=== PATIENT | female | born 1960 | race American Indian/Alaskan Native ===

== ENCOUNTER 2016-12-10 20:05 | Emergency (ER) | payer SELFPAY ==
[2016-12-10 20:11] VITALS: BP 131/75
[2016-12-10 20:55] LABS: CHLORIDE,CL 109 mmol/L (101-111); SODIUM,NA 140 mmol/L (135-145)
[2016-12-10] MEDS ORDERED: Potassium Chloride 10 MEQ Tab.ER PO ONE (21:51)
--- NOTE | 2016-12-11 05:14 | EDM.PDOC ---
ED HPI GENERAL MEDICAL PROBLEM - General Chief Complaint: Chest Pain Stated Complaint: AMB Time Seen by Provider: 12/10/16 20:10 Source of Information: Reports: Patient, EMS History Limitations: Reports: Altered Mental Status (visual hallucinations, ), Uncooperative - History of Present Illness INITIAL COMMENTS - FREE TEXT/NARRATIVE: ED via [facility] with c/o 2 weeks of chest pain and left weakness today. Chest pain noted to be better by patient if she applied pressure to area. No reported fever. On exam patient unable to note why she is here. Onset: Unknown/Unsure Duration: Constant Quality: Reports: Ache Severity: Mild Improves with: Reports: Other (applying pressure) Associated Symptoms: Denies: Cough, Diaphoresis, Fever/Chills, Loss of Appetite , Nausea/Vomiting Left Chest Pain Score (Numeric/FACES): 5 - Related Data Allergies Allergy/AdvReac Type Severity Reaction Status Date / Time acetaminophen [From Tylenol] AdvReac Abdominal Verified 12/10/16 20:13 Cramps Home Meds: Home Meds Ertapenem [INVanz] 1 gm IV DAILY 03/02/15 [History] Furosemide [Lasix] 40 mg PO DAILY 03/02/15 [History] Nystatin [Nyamyc] 15 gm TP BID 03/02/15 [History] Past Medical History Other HEENT History: wears glasses while awake Cardiovascular History: Reports: None Respiratory History: Reports: Other (See Below) Other Respiratory History: SOB c exertion Gastrointestinal History: Reports: Cirrhosis Other Gastrointestinal History: Heartburn Genitourinary History: Reports: None Musculoskeletal History: Reports: Back Pain, Chronic, Other (See Below) Other Musculoskeletal History: cramps in hands and calves. Neurological History: Reports: Migraines Psychiatric History: Reports: Addiction Other Psychiatric History: alcohol Endocrine/Metabolic History: Reports: None Hematologic History: Reports: Other (See Below) Other Hematologic History: chronic thrombocytopenia Immunologic History: Reports: None Oncologic (Cancer) History: Reports: None Dermatologic History: Reports: Cellulitis - Past Surgical History GI Surgical History: Reports: Cholecystectomy, EGD Female Surgical History: Reports: Other (See Below) Other Female Surgeries/Procedures: removal of renal calculus Social & Family History - Tobacco Use Smoking Status *Q: Current Every Day Smoker Years of Tobacco use: 37 Packs/Tins Daily: 0.5 Used Tobacco, but Quit: No Second Hand Smoke Exposure: Yes - Recreational Drug Use Recreational Drug Use: No ED ROS GENERAL - Review of Systems Review Of Systems: ROS reveals no pertinent complaints other than HPI. (poor historian) ED EXAM, GENERAL - Physical Exam Exam: See Below Exam Limited By: No Limitations General Appearance: Alert, No Apparent Distress Eye Exam: Bilateral Eye: EOMI, PERRL Ears: Normal External Exam, Normal TMs Nose: Normal Inspection Throat/Mouth: Normal Inspection Head: Atraumatic, Normocephalic Neck: Normal Inspection, Full Range of Motion Respiratory/Chest: No Respiratory Distress, Lungs Clear Course - Vital Signs Last Recorded V/S: Last Vital Signs Temp 99.2 F 12/10/16 20:06 Pulse 105 H 12/10/16 20:06 Resp 18 12/10/16 20:06 BP 131/75 12/10/16 20:06 Pulse Ox 97 12/10/16 20:06 - Orders/Labs/Meds Labs: Laboratory Tests 12/10/16 12/10/16 12/10/16 Range/Units 20:25 20:25 20:25 WBC 3.7 L (5.0-10.0) 10^3/uL RBC 4.43 (4.2-5.4) 10^6/uL Hgb 10.5 L (12.0-16.0) g/dL Hct 34.5 L (37.0-47.0) % MCV 77.9 L (80-100) fL MCH 23.7 L (27.0-34.0) pg MCHC 30.4 L (33.0-35.0) g/dL Plt Count 67 L (150-450) 10^3/uL Neut % (Auto) 71.0 (42.2-75.2) % Lymph % (Auto) 19.9 L (20.5-50.1) % [place] % (Auto) 4.0 (2-8) % Eos % (Auto) 4.6 H (1.0-3.0) % Baso % (Auto) 0.5 (0.0-1.0) % Sodium 140 (135-145) mmol/L Potassium 3.1 L (3.6-5.0) mmol/L Chloride 109 (101-111) mmol/L Carbon Dioxide 24.0 (21.0-31.0) mmol/L Anion Gap 10.1 BUN 10 (7-18) mg/dL Creatinine 0.5 L (0.6-1.3) mg/dL Est Cr Clr Drug Dosing 95.93 mL/min Estimated GFR (MDRD) > 60 BUN/Creatinine Ratio 20.00 Glucose 108 H (74-105) mg/dL Lactic Acid (0.5-2.2) mmol/L Calcium 7.8 L (8.4-10.2) mg/dl Total Bilirubin 1.5 H (0.2-1.0) mg/dL AST 48 H (10-42) IU/L ALT 26 (10-60) IU/L Alkaline Phosphatase 104 (42-121) IU/L Ammonia 59 H (11-35) umol/L Total Protein 6.8 (6.7-8.2) g/dl Albumin 3.5 (3.2-5.5) g/dl Globulin 3.3 Albumin/Globulin Ratio 1.06 Amylase 45 (28-100) U/L Lipase 37 (22-51) U/L Urine Color (YELLOW) Urine Appearance (CLEAR) Urine pH (5.0-9.0) Ur Specific [place] (1.005-1.030) Urine Protein (NEGATIVE) Urine Glucose (UA) (NEGATIVE) Urine Ketones (NEGATIVE) Urine Occult Blood (NEGATIVE) Urine Nitrite (NEGATIVE) Urine Bilirubin (NEGATIVE) Urine Urobilinogen (0.2-1.0) mg/dL Ur Leukocyte Esterase (NEGATIVE) Urine RBC /HPF Urine WBC (0-5/HPF) /HPF Ur Epithelial Cells /HPF Urine Bacteria (0-FEW/HPF) /HPF Urine Mucus /LPF Urine Opiates Screen (NEGATIVE) Ur Oxycodone Screen (NEGATIVE) Urine Methadone Screen (NEGATIVE) Ur Barbiturates Screen (NEGATIVE) U Tricyclic Antidepress (NEGATIVE) Ur Phencyclidine Scrn (NEGATIVE) Ur Amphetamine Screen (NEGATIVE) U Methamphetamines Scrn (NEGATIVE) Urine MDMA Screen (NEGATIVE) U Benzodiazepines Scrn (NEGATIVE) Urine Cocaine Screen (NEGATIVE) U Marijuana (THC) Screen (NEGATIVE) Ethyl Alcohol mg/dL 12/10/16 12/10/16 12/10/16 Range/Units 20:25 20:25 20:53 WBC (5.0-10.0) 10^3/uL RBC (4.2-5.4) 10^6/uL Hgb (12.0-16.0) g/dL Hct (37.0-47.0) % MCV (80-100) fL MCH (27.0-34.0) pg MCHC (33.0-35.0) g/dL Plt Count (150-450) 10^3/uL Neut % (Auto) (42.2-75.2) % Lymph % (Auto) (20.5-50.1) % [place] % (Auto) (2-8) % Eos % (Auto) (1.0-3.0) % Baso % (Auto) (0.0-1.0) % Sodium (135-145) mmol/L Potassium (3.6-5.0) mmol/L Chloride (101-111) mmol/L Carbon Dioxide (21.0-31.0) mmol/L Anion Gap BUN (7-18) mg/dL Creatinine (0.6-1.3) mg/dL Est Cr Clr Drug Dosing mL/min Estimated GFR (MDRD) BUN/Creatinine Ratio Glucose (74-105) mg/dL Lactic Acid 2.1 (0.5-2.2) mmol/L Calcium (8.4-10.2) mg/dl Total Bilirubin (0.2-1.0) mg/dL AST (10-42) IU/L ALT (10-60) IU/L Alkaline Phosphatase (42-121) IU/L Ammonia (11-35) umol/L Total Protein (6.7-8.2) g/dl Albumin (3.2-5.5) g/dl Globulin Albumin/Globulin Ratio Amylase (28-100) U/L Lipase (22-51) U/L Urine Color (YELLOW) Urine Appearance (CLEAR) Urine pH (5.0-9.0) Ur Specific [place] (1.005-1.030) Urine Protein (NEGATIVE) Urine Glucose (UA) (NEGATIVE) Urine Ketones (NEGATIVE) Urine Occult Blood (NEGATIVE) Urine Nitrite (NEGATIVE) Urine Bilirubin (NEGATIVE) Urine Urobilinogen (0.2-1.0) mg/dL Ur Leukocyte Esterase (NEGATIVE) Urine RBC /HPF Urine WBC (0-5/HPF) /HPF Ur Epithelial Cells /HPF Urine Bacteria (0-FEW/HPF) /HPF Urine Mucus /LPF Urine Opiates Screen Negative (NEGATIVE) Ur Oxycodone Screen Negative (NEGATIVE) Urine Methadone Screen Negative (NEGATIVE) Ur Barbiturates Screen Negative (NEGATIVE) U Tricyclic Antidepress Negative (NEGATIVE) Ur Phencyclidine Scrn Negative (NEGATIVE) Ur Amphetamine Screen Negative (NEGATIVE) U Methamphetamines Scrn Negative (NEGATIVE) Urine MDMA Screen Negative (NEGATIVE) U Benzodiazepines Scrn Negative (NEGATIVE) Urine Cocaine Screen Negative (NEGATIVE) U Marijuana (THC) Screen Negative (NEGATIVE) Ethyl Alcohol 308 mg/dL 12/10/16 Range/Units 20:53 WBC (5.0-10.0) 10^3/uL RBC (4.2-5.4) 10^6/uL Hgb (12.0-16.0) g/dL Hct (37.0-47.0) % MCV (80-100) fL MCH (27.0-34.0) pg MCHC (33.0-35.0) g/dL Plt Count (150-450) 10^3/uL Neut % (Auto) (42.2-75.2) % Lymph % (Auto) (20.5-50.1) % [place] % (Auto) (2-8) % Eos % (Auto) (1.0-3.0) % Baso % (Auto) (0.0-1.0) % Sodium (135-145) mmol/L Potassium (3.6-5.0) mmol/L Chloride (101-111) mmol/L Carbon Dioxide (21.0-31.0) mmol/L Anion Gap BUN (7-18) mg/dL Creatinine (0.6-1.3) mg/dL Est Cr Clr Drug Dosing mL/min Estimated GFR (MDRD) BUN/Creatinine Ratio Glucose (74-105) mg/dL Lactic Acid (0.5-2.2) mmol/L Calcium (8.4-10.2) mg/dl Total Bilirubin (0.2-1.0) mg/dL AST (10-42) IU/L ALT (10-60) IU/L Alkaline Phosphatase (42-121) IU/L Ammonia (11-35) umol/L Total Protein (6.7-8.2) g/dl Albumin (3.2-5.5) g/dl Globulin Albumin/Globulin Ratio Amylase (28-100) U/L Lipase (22-51) U/L Urine Color Yellow (YELLOW) Urine Appearance Clear (CLEAR) Urine pH 6.5 (5.0-9.0) Ur Specific [place] 1.015 (1.005-1.030) Urine Protein 100 H (NEGATIVE) Urine Glucose (UA) Negative (NEGATIVE) Urine Ketones Trace H (NEGATIVE) Urine Occult Blood Moderate H (NEGATIVE) Urine Nitrite Negative (NEGATIVE) Urine Bilirubin Negative (NEGATIVE) Urine Urobilinogen 4.0 H (0.2-1.0) mg/dL Ur Leukocyte Esterase Trace H (NEGATIVE) Urine RBC 5-10 H /HPF Urine WBC 0-5 (0-5/HPF) /HPF Ur Epithelial Cells Few /HPF Urine Bacteria Few (0-FEW/HPF) /HPF Urine Mucus Many H /LPF Urine Opiates Screen (NEGATIVE) Ur Oxycodone Screen (NEGATIVE) Urine Methadone Screen (NEGATIVE) Ur Barbiturates Screen (NEGATIVE) U Tricyclic Antidepress (NEGATIVE) Ur Phencyclidine Scrn (NEGATIVE) Ur Amphetamine Screen (NEGATIVE) U Methamphetamines Scrn (NEGATIVE) Urine MDMA Screen (NEGATIVE) U Benzodiazepines Scrn (NEGATIVE) Urine Cocaine Screen (NEGATIVE) U Marijuana (THC) Screen (NEGATIVE) Ethyl Alcohol mg/dL Meds: Medications Discontinued Medications Generic Name Dose Route Start Last Admin Trade Name Pia PRN Reason Stop Dose Admin Potassium Chloride 20 meq 12/10/16 21:51 Klor-Con 10 PO 12/10/16 21:52 ONETIME ONE - Re-Assessments/Exams Free Text/Narrative Re-Assessment/Exam: Patient out of bed numerous times attempting to leave, and redirected. Generally cooperative. . Gait is steady, non antalgic. When up and moving and talking strong odor of ETOH that was not initially apparent. Patient eloped. Departure - Departure Time of Disposition: 22:05 Disposition: Eloped 07 Condition: undetermined Clinical Impression: Intoxication - Discharge Information Referrals: PCP,Unobtain [Primary Care Provider] - Forms: ED Department Discharge
--- NOTE | 2016-12-14 12:06 | EKG ---
12/10/2016 - DONAVON MALONE I reviewed the EKG and agree with the machine's reading. [facility] /[id number]
== END 2016-12-10 22:05 | disposition left against medical advice (07) ==
LOC: DL.ED 20:05
DX: F10.129 Alcohol abuse with intoxication, unspecified (principal); R07.9 Chest pain, unspecified; R53.1 Weakness; G43.909 Migraine, unspecified, not intractable, without status migrainosus; F17.210 Nicotine dependence, cigarettes, uncomplicated; Y90.8 Blood alcohol level of 240 mg/100 ml or more; Z90.49 Acquired absence of other specified parts of digestive tract; Z88.6 Allergy status to analgesic agent; Z79.899 Other long term (current) drug therapy
CPT/HCPCS: 36415; 70450; 71010; 80053; 80305; 81001; 82140; 82150; 83605; 83690; 85025; 87040; 93005; 93010; 99285; G0480; 99283

== ENCOUNTER 2017-02-16 10:45 | Emergency (ER) | payer SELFPAY ==
--- NOTE | 2017-02-16 10:49 | EDM.PDOC ---
ED HPI GENERAL MEDICAL PROBLEM - General Stated Complaint: IN BY AMBULANCE Time Seen by Provider: 02/16/17 10:50 Source of Information: Reports: Patient History Limitations: Reports: No Limitations - History of Present Illness INITIAL COMMENTS - FREE TEXT/NARRATIVE: This 56 yo female patient was brought to the ED from the [facility] due to 7 episodes of vomiting blood today. The patient reported that she started vomiting at about 0630 this morning. The patient was given a liter of IV fluid and IV Zofran by the [facility] and [facility] prior to arrival in the ED. The patient has a history of ETOH use and esophageal varicies. The patient reports she has been drinking intermittently since February 02. The patient admits to drinking about 1/2 liter of [place] last night and stopped at about midnight. The patient reports her bowel movements have been very dark in color for the past 2-3 days and her stomach started not feeling well yesterday. The patient reports she is currently feeling very lightheaded. Onset: Today Onset Date: 02/16/17 Onset Time: 06:00 Duration: Hour(s):, Constant Location: Reports: Abdomen Quality: Reports: Ache, Dull Severity: Moderate Improves with: Reports: None Worsens with: Reports: None Associated Symptoms: Reports: Nausea/Vomiting Right Abdomen Pain Score (Numeric/FACES): 4 - Related Data Allergies Allergy/AdvReac Type Severity Reaction Status Date / Time pseudoephedrine Allergy Itching Verified 02/16/17 11:11 acetaminophen [From Tylenol] AdvReac Abdominal Verified 12/10/16 20:13 Cramps Home Meds: Home Meds Ertapenem [INVanz] 1 gm IV DAILY 03/02/15 [History] Furosemide [Lasix] 40 mg PO DAILY 03/02/15 [History] Nystatin [Nyamyc] 15 gm TP BID 03/02/15 [History] Past Medical History Other HEENT History: wears glasses while awake Cardiovascular History: Reports: None Respiratory History: Reports: Other (See Below) Other Respiratory History: SOB c exertion Gastrointestinal History: Reports: None Other Gastrointestinal History: Heartburn Genitourinary History: Reports: None Musculoskeletal History: Reports: Back Pain, Chronic, Other (See Below) Other Musculoskeletal History: cramps in hands and calves. Neurological History: Reports: Migraines Psychiatric History: Reports: Addiction Other Psychiatric History: alcohol Endocrine/Metabolic History: Reports: None Hematologic History: Reports: Other (See Below) Other Hematologic History: chronic thrombocytopenia Immunologic History: Reports: None Oncologic (Cancer) History: Reports: None Dermatologic History: Reports: Cellulitis - Past Surgical History GI Surgical History: Reports: Cholecystectomy Social & Family History - Tobacco Use Smoking Status *Q: Current Every Day Smoker Years of Tobacco use: 37 Packs/Tins Daily: 0.5 Used Tobacco, but Quit: No Second Hand Smoke Exposure: Yes - Recreational Drug Use Recreational Drug Use: No ED ROS GENERAL - Review of Systems Review Of Systems: ROS reveals no pertinent complaints other than HPI. ED EXAM, GI/ABD - Physical Exam Exam: See Below Exam Limited By: No Limitations General Appearance: Alert, WD/WN, Moderate Distress Eyes: Bilateral: Normal Appearance, EOMI Ears: Normal External Exam, Normal Canal, Hearing Grossly Normal, Normal TMs Nose: Normal Inspection, Normal Mucosa, No Blood Throat/Mouth: Normal Inspection, Normal Lips, Normal Teeth, Normal Gums, Normal Oropharynx, Normal Voice, No Airway Compromise Head: Atraumatic, Normocephalic Neck: Normal Inspection, Supple, Non-Tender, Full Range of Motion Respiratory/Chest: No Respiratory Distress, Lungs Clear, Normal Breath Sounds, No Accessory Muscle Use, Chest Non-Tender Cardiovascular: Normal Peripheral Pulses, Regular Rate, Rhythm, No Edema, No Gallop, No JVD, No Murmur, No Rub GI/Abdominal Exam: Normal Bowel Sounds, Tender (diffuse upper and right sided abdominal pain) (Female) Exam: Deferred Back Exam: Paraspinal Tenderness (right lower back) Extremities: Normal Inspection, Normal Range of Motion, Non-Tender, Normal Capillary Refill, No Pedal Edema Neurological: Alert, Oriented, CN II-XII Intact, Normal Cognition, Normal Gait, Normal Reflexes, No Motor/Sensory Deficits Psychiatric: Normal Affect, Normal Mood Skin Exam: Warm, Dry, Intact, Normal Color, No Rash Lymphatic: No Adenopathy Course - Vital Signs Last Recorded V/S: Last Vital Signs Temp 37.1 C 02/16/17 11:47 Pulse 106 H 02/16/17 11:47 Resp 16 02/16/17 11:47 BP 100/58 L 02/16/17 11:47 Pulse Ox 98 02/16/17 11:47 - Orders/Labs/Meds Labs: Laboratory Tests 02/16/17 02/16/17 02/16/17 Range/Units 10:47 10:47 10:47 WBC 4.4 L (5.0-10.0) 10^3/uL RBC 3.53 L (4.2-5.4) 10^6/uL Hgb 8.2 L (12.0-16.0) g/dL Hct 29.2 L (37.0-47.0) % MCV 82.7 (80-100) fL MCH 23.2 L (27.0-34.0) pg MCHC 28.1 L (33.0-35.0) g/dL Plt Count 65 L (150-450) 10^3/uL Neut % (Auto) 86.3 H (42.2-75.2) % Lymph % (Auto) 5.7 L (20.5-50.1) % [place] % (Auto) 7.3 (2-8) % Eos % (Auto) 0.5 L (1.0-3.0) % Baso % (Auto) 0.2 (0.0-1.0) % Sodium 144 (135-145) mmol/L Potassium 3.5 L (3.6-5.0) mmol/L Chloride 112 H (101-111) mmol/L Carbon Dioxide 21.0 (21.0-31.0) mmol/L Anion Gap 14.5 BUN 21 H (7-18) mg/dL Creatinine 0.5 L (0.6-1.3) mg/dL Est Cr Clr Drug Dosing 98.24 mL/min Estimated GFR (MDRD) > 60 BUN/Creatinine Ratio 42.00 Glucose 104 (74-105) mg/dL Calcium 7.6 L (8.4-10.2) mg/dl Total Bilirubin 4.5 H (0.2-1.0) mg/dL AST 66 H (10-42) IU/L ALT 40 (10-60) IU/L Alkaline Phosphatase 97 (42-121) IU/L Ammonia 148 H (11-35) umol/L Total Protein 5.8 L (6.7-8.2) g/dl Albumin 2.8 L (3.2-5.5) g/dl Globulin 3.0 Albumin/Globulin Ratio 0.93 Amylase 30 (28-100) U/L Lipase 25 (22-51) U/L HCG, Qual Negative Urine Color (YELLOW) Urine Appearance (CLEAR) Urine pH (5.0-9.0) Ur Specific [place] (1.005-1.030) Urine Protein (NEGATIVE) Urine Glucose (UA) (NEGATIVE) Urine Ketones (NEGATIVE) Urine Occult Blood (NEGATIVE) Urine Nitrite (NEGATIVE) Urine Bilirubin (NEGATIVE) Urine Urobilinogen (0.2-1.0) mg/dL Ur Leukocyte Esterase (NEGATIVE) Urine RBC /HPF Urine WBC (0-5/HPF) /HPF Ur Epithelial Cells /HPF Urine Bacteria (0-FEW/HPF) /HPF Urine Mucus /LPF Urine Opiates Screen (NEGATIVE) Ur Oxycodone Screen (NEGATIVE) Urine Methadone Screen (NEGATIVE) Ur Barbiturates Screen (NEGATIVE) U Tricyclic Antidepress (NEGATIVE) Ur Phencyclidine Scrn (NEGATIVE) Ur Amphetamine Screen (NEGATIVE) U Methamphetamines Scrn (NEGATIVE) Urine MDMA Screen (NEGATIVE) U Benzodiazepines Scrn (NEGATIVE) Urine Cocaine Screen (NEGATIVE) U Marijuana (THC) Screen (NEGATIVE) Ethyl Alcohol 8 mg/dL 02/16/17 02/16/17 Range/Units 11:32 11:32 WBC (5.0-10.0) 10^3/uL RBC (4.2-5.4) 10^6/uL Hgb (12.0-16.0) g/dL Hct (37.0-47.0) % MCV (80-100) fL MCH (27.0-34.0) pg MCHC (33.0-35.0) g/dL Plt Count (150-450) 10^3/uL Neut % (Auto) (42.2-75.2) % Lymph % (Auto) (20.5-50.1) % [place] % (Auto) (2-8) % Eos % (Auto) (1.0-3.0) % Baso % (Auto) (0.0-1.0) % Sodium (135-145) mmol/L Potassium (3.6-5.0) mmol/L Chloride (101-111) mmol/L Carbon Dioxide (21.0-31.0) mmol/L Anion Gap BUN (7-18) mg/dL Creatinine (0.6-1.3) mg/dL Est Cr Clr Drug Dosing mL/min Estimated GFR (MDRD) BUN/Creatinine Ratio Glucose (74-105) mg/dL Calcium (8.4-10.2) mg/dl Total Bilirubin (0.2-1.0) mg/dL AST (10-42) IU/L ALT (10-60) IU/L Alkaline Phosphatase (42-121) IU/L Ammonia (11-35) umol/L Total Protein (6.7-8.2) g/dl Albumin (3.2-5.5) g/dl Globulin Albumin/Globulin Ratio Amylase (28-100) U/L Lipase (22-51) U/L HCG, Qual Urine Color Yellow (YELLOW) Urine Appearance Slightly cloudy (CLEAR) Urine pH 7.5 (5.0-9.0) Ur Specific [place] 1.015 (1.005-1.030) Urine Protein Negative (NEGATIVE) Urine Glucose (UA) Negative (NEGATIVE) Urine Ketones 15 H (NEGATIVE) Urine Occult Blood Trace-intact H (NEGATIVE) Urine Nitrite Negative (NEGATIVE) Urine Bilirubin Negative (NEGATIVE) Urine Urobilinogen 1.0 (0.2-1.0) mg/dL Ur Leukocyte Esterase Negative (NEGATIVE) Urine RBC 5-10 H /HPF Urine WBC Not seen (0-5/HPF) /HPF Ur Epithelial Cells Rare /HPF Urine Bacteria Rare (0-FEW/HPF) /HPF Urine Mucus Rare /LPF Urine Opiates Screen Negative (NEGATIVE) Ur Oxycodone Screen Negative (NEGATIVE) Urine Methadone Screen Negative (NEGATIVE) Ur Barbiturates Screen Negative (NEGATIVE) U Tricyclic Antidepress Negative (NEGATIVE) Ur Phencyclidine Scrn Negative (NEGATIVE) Ur Amphetamine Screen Negative (NEGATIVE) U Methamphetamines Scrn Negative (NEGATIVE) Urine MDMA Screen Negative (NEGATIVE) U Benzodiazepines Scrn Negative (NEGATIVE) Urine Cocaine Screen Negative (NEGATIVE) U Marijuana (THC) Screen Negative (NEGATIVE) Ethyl Alcohol mg/dL Meds: Medications Discontinued Medications Generic Name Dose Route Start Last Admin Trade Name Freq PRN Reason Stop Dose Admin Pantoprazole Sodium 80 mg 02/16/17 10:57 02/16/17 11:11 Protonix Iv IVPUSH 02/16/17 10:58 80 mg .BOLUS ONE Administration Departure - Departure Time of Disposition: 12:05 Disposition: DC/Tfer to Acute Hospital 02 Condition: Poor Clinical Impression: Upper GI bleed GI bleed Qualifiers: GI bleed type/associated pathology: gastritis Gastritis type: alcoholic Qualified Code(s): K29.21 - Alcoholic gastritis with bleeding - Discharge Information Forms: Interfacility Transfer EMTALA Care Plan Goals: Discussed the history, examination, labs and treatments with Dr. Dow ( Hospitalist with [facility] in [place]). Dr. Dow accepted the patient for continued evaluation and management. The patient will be treated by [facility].
[2017-02-16] MEDS ORDERED: Pantoprazole 40 MG Vial IVPUSH ONE (10:57)
[2017-02-16 11:23] LABS: CHLORIDE,CL 112 mmol/L (101-111); SODIUM,NA 144 mmol/L (135-145)
[2017-02-16 11:49] VITALS: BP 100/58
== END 2017-02-16 13:18 ==
LOC: DL.ED 10:45
DX: K29.21 Alcoholic gastritis with bleeding (principal); G43.909 Migraine, unspecified, not intractable, without status migrainosus; F17.210 Nicotine dependence, cigarettes, uncomplicated; Z90.49 Acquired absence of other specified parts of digestive tract; Z79.899 Other long term (current) drug therapy
CPT/HCPCS: 36415; 80053; 80305; 81001; 82140; 82150; 82272; 83690; 84703; 85025; 96365; 96375; 99285; C9113; G0480; J2354; J7050

== ENCOUNTER 2017-05-27 07:10 | Emergency (ER) | payer MEDICAID ==
--- NOTE | 2017-05-27 07:30 | EDM.PDOC ---
ED HPI GENERAL MEDICAL PROBLEM - General Chief Complaint: General Stated Complaint: AMBULANCE/PNEUMONIA Time Seen by Provider: 05/27/17 07:22 Source of Information: Reports: EMS, EMS Notes Reviewed - History of Present Illness INITIAL COMMENTS - FREE TEXT/NARRATIVE: 57 yo [place] female c/o green productive cough X 1 week patient also smoker and around 2nd hand smoke. Pt. admits to fever and chills. Pt. also states she drinks alcohol every other day and fell three days ago onto left side sustaining left lateral low abdomen pain. Onset Date: 05/20/17 Onset Time: 12:00 Duration: Week(s):, Getting Worse Location: Reports: Chest Severity: Moderate Improves with: Reports: None Worsens with: Reports: None Associated Symptoms: Reports: cough w sputum (green) Left Lower Abdomen Pain Score (Numeric/FACES): 9 - Related Data Allergies Allergy/AdvReac Type Severity Reaction Status Date / Time pseudoephedrine Allergy Itching Verified 02/16/17 11:11 acetaminophen [From Tylenol] AdvReac Abdominal Verified 12/10/16 20:13 Cramps Past Medical History HEENT History: Reports: Other (See Below) Other HEENT History: wears glasses while awake Cardiovascular History: Reports: None Other Cardiovascular History: portal hypertension Respiratory History: Reports: Other (See Below) Other Respiratory History: SOB c exertion Gastrointestinal History: Reports: None Other Gastrointestinal History: Heartburn Genitourinary History: Reports: None Musculoskeletal History: Reports: Back Pain, Chronic, Other (See Below) Other Musculoskeletal History: cramps in hands and calves. Neurological History: Reports: Migraines Psychiatric History: Reports: Addiction Other Psychiatric History: alcohol Endocrine/Metabolic History: Reports: None Hematologic History: Reports: Other (See Below) Other Hematologic History: chronic thrombocytopenia Immunologic History: Reports: None Oncologic (Cancer) History: Reports: None Dermatologic History: Reports: Cellulitis - Infectious Disease History Infectious Disease History: Reports: None - Past Surgical History GI Surgical History: Reports: Cholecystectomy Social & Family History - Family History Family Medical History: Noncontributory - Tobacco Use Smoking Status *Q: Current Every Day Smoker Years of Tobacco use: 37 Packs/Tins Daily: 0.5 Used Tobacco, but Quit: No Second Hand Smoke Exposure: Yes - Caffeine Use Caffeine Use: Reports: Coffee, Tea - Alcohol Use Days Per Week of Alcohol Use: 7 Number of Drinks Per Day: 10 Total Drinks Per Week: 70 - Recreational Drug Use Recreational Drug Use: No ED ROS GENERAL - Review of Systems Review Of Systems: See Below Constitutional: Reports: No Symptoms HEENT: Reports: No Symptoms Respiratory: Reports: Cough, Sputum Cardiovascular: Reports: No Symptoms Endocrine: Reports: No Symptoms GI/Abdominal: Reports: Abdominal Pain (LLQ ) : Reports: No Symptoms Musculoskeletal: Reports: No Symptoms Skin: Reports: No Symptoms Neurological: Reports: No Symptoms Psychiatric: Reports: No Symptoms Hematologic/Lymphatic: Reports: No Symptoms Immunologic: Reports: No Symptoms ED EXAM, GENERAL - Physical Exam Exam: See Below Exam Limited By: No Limitations General Appearance: Alert, WD/WN, No Apparent Distress Eye Exam: Bilateral Eye: EOMI, PERRL Ears: Normal External Exam Nose: Normal Inspection Throat/Mouth: Normal Inspection, Normal Lips Head: Atraumatic, Normocephalic Neck: Normal Inspection, Supple Respiratory/Chest: No Respiratory Distress, No Accessory Muscle Use, Rhonchi Cardiovascular: Normal Peripheral Pulses, Regular Rate, Rhythm, No Edema Peripheral Pulses: 2+: Radial (L), Radial (R) GI/Abdominal: Normal Bowel Sounds, Soft, Tender (LLQ tenderness) Extremities: Normal Inspection, Normal Range of Motion Neurological: Alert, Oriented, CN II-XII Intact, Normal Cognition Psychiatric: Normal Affect, Normal Mood Skin Exam: Warm, Dry, Intact, Other (LLQ abdomen skin bruising) Lymphatic: No Adenopathy Course - Vital Signs Last Recorded V/S: Last Vital Signs Temp 37.6 C 05/27/17 07:35 Pulse 105 H 05/27/17 08:24 Resp 20 05/27/17 08:19 BP 105/56 L 05/27/17 08:24 Pulse Ox 92 L 05/27/17 08:19 - Orders/Labs/Meds Orders: Active Orders 24 hr Category Date Time Status RT Aerosol Therapy [RC] ASDIRECTED Care 05/27/17 07:35 Ordered Chest 2V [CR] Urgent Exams 05/27/17 07:22 Ordered CBC WITH AUTO DIFF [HEME] Stat Lab 05/27/17 07:22 Ordered CULTURE BLOOD [BC] Stat Lab 05/27/17 07:22 Ordered CULTURE BLOOD [BC] Stat Lab 05/27/17 07:30 Ordered CULTURE SPUTUM + SMEAR [RM] Stat Lab 05/27/17 07:23 Uncollected MANUAL DIFFERENTIAL QA/NC [HEME] Stat Lab 05/27/17 07:38 Results D5 1/2 NS w/ 40 mEq/L KCl 1,000 ml Med 05/27/17 08:45 Ordered IV ASDIRECTED Levofloxacin/Dextrose 5%-Water [Levaquin in D5W 750 MG/ Med 05/27/17 08:45 Ordered 150 ML] 750 mg Premix Bag 1 bag IV ONETIME Sodium Chloride 0.9% [Normal Saline] 1,000 ml Med 05/27/17 08:32 Ordered IV .BOLUS Medication Orders Sodium Chloride (Normal Saline) 1,000 mls @ 999 mls/hr IV .BOLUS ONE Stop: 05/27/17 09:32 Last Admin: 05/27/17 08:37 Dose: 999 mls/hr Potassium Chloride/Dextrose/Sod Cl (D5 1/2 Ns W/ 40 Meq/L Kcl) 1,000 mls @ 999 mls/hr IV ASDIRECTED SARINA Levofloxacin/Dextrose 750 mg/ (Premix) 150 mls @ 100 mls/hr IV ONETIME ONE Stop: 05/27/17 10:14 Labs: Laboratory Tests 05/27/17 05/27/17 05/27/17 Range/Units 07:38 07:38 07:38 WBC 3.9 L (5.0-10.0) 10^3/uL RBC 4.35 (4.2-5.4) 10^6/uL Hgb 10.7 L D (12.0-16.0) g/dL Hct 35.9 L (37.0-47.0) % MCV 82.5 (80-100) fL MCH 24.6 L (27.0-34.0) pg MCHC 29.8 L (33.0-35.0) g/dL Plt Count 30 L* (150-450) 10^3/uL Neut % (Auto) 94.1 H (42.2-75.2) % Lymph % (Auto) 2.3 L (20.5-50.1) % [place] % (Auto) 3.6 (2-8) % Eos % (Auto) 0.0 L (1.0-3.0) % Baso % (Auto) 0.0 (0.0-1.0) % Add Manual Diff Yes Sodium 136 (135-145) mmol/L Potassium 3.0 L (3.6-5.0) mmol/L Chloride 100 L D (101-111) mmol/L Carbon Dioxide 17.0 L (21.0-31.0) mmol/L Anion Gap 22.0 BUN 12 (7-18) mg/dL Creatinine 0.8 (0.6-1.3) mg/dL Est Cr Clr Drug Dosing 59.25 mL/min Estimated GFR (MDRD) > 60 BUN/Creatinine Ratio 15.00 Glucose 62 L (74-105) mg/dL Lactic Acid 7.3 H (0.5-2.2) mmol/L Calcium 8.4 (8.4-10.2) mg/dl Total Bilirubin 9.8 H (0.2-1.0) mg/dL AST 183 H (10-42) IU/L ALT 60 (10-60) IU/L Alkaline Phosphatase 136 H (42-121) IU/L Total Protein 7.3 (6.7-8.2) g/dl Albumin 3.2 (3.2-5.5) g/dl Globulin 4.1 Albumin/Globulin Ratio 0.78 Ethyl Alcohol mg/dL 05/27/ Range/Units 07:38 WBC (5.0-10.0) 10^3/uL RBC (4.2-5.4) 10^6/uL Hgb (12.0-16.0) g/dL Hct (37.0-47.0) % MCV (80-100) fL MCH (27.0-34.0) pg MCHC (33.0-35.0) g/dL Plt Count (150-450) 10^3/uL Neut % (Auto) (42.2-75.2) % Lymph % (Auto) (20.5-50.1) % [place] % (Auto) (2-8) % Eos % (Auto) (1.0-3.0) % Baso % (Auto) (0.0-1.0) % Add Manual Diff Sodium (135-145) mmol/L Potassium (3.6-5.0) mmol/L Chloride (101-111) mmol/L Carbon Dioxide (21.0-31.0) mmol/L Anion Gap BUN (7-18) mg/dL Creatinine (0.6-1.3) mg/dL Est Cr Clr Drug Dosing mL/min Estimated GFR (MDRD) BUN/Creatinine Ratio Glucose (74-105) mg/dL Lactic Acid (0.5-2.2) mmol/L Calcium (8.4-10.2) mg/dl Total Bilirubin (0.2-1.0) mg/dL AST (10-42) IU/L ALT (10-60) IU/L Alkaline Phosphatase (42-121) IU/L Total Protein (6.7-8.2) g/dl Albumin (3.2-5.5) g/dl Globulin Albumin/Globulin Ratio Ethyl Alcohol 5 mg/dL Meds: Medications Generic Name Dose Route Start Last Admin Trade Name Freq PRN Reason Stop Dose Admin Sodium Chloride 1,000 mls @ 999 mls/hr 05/27/17 08:32 05/27/17 08:37 Normal Saline IV 05/27/17 09:32 999 mls/hr .BOLUS ONE Administration Potassium Chloride/Dextrose/Sod Cl 1,000 mls @ 999 mls/hr 05/27/17 08:45 D5 1/2 Ns W/ 40 Meq/L Kcl IV ASDIRECTED SARINA Levofloxacin/Dextrose 750 mg/ 150 mls @ 100 mls/hr 05/27/17 08:45 Premix IV 05/27/17 10:14 ONETIME ONE Discontinued Medications Generic Name Dose Route Start Last Admin Trade Name Freq PRN Reason Stop Dose Admin Albuterol/Ipratropium 3 ml 05/27/17 07:35 05/27/17 07:47 Duoneb 3.0-0.5 Mg/3 Ml NEB 05/27/17 07:36 3 ml ONETIME ONE Administration Departure - Departure Time of Disposition: 08:47 Disposition: DC/Tfer to [facility] Condition: Fair Clinical Impression: Hyperbilirubinemia, Thrombocytopenia, Hypokalemia Pneumonia Qualifiers: Pneumonia type: due to unspecified organism Laterality: bilateral Lung location : unspecified part of lung Qualified Code(s): J18.9 - Pneumonia, unspecified organism Hypotension Qualifiers: Hypotension type: other hypotension type Qualified Code(s): I95.89 - Other hypotension - Discharge Information Forms: ED Department Discharge, Interfacility Transfer EMTALA - My Orders Last 24 Hours: My Active Orders 05/27/17 07:22 Chest 2V [CR] Urgent CBC WITH AUTO DIFF [HEME] Stat CULTURE BLOOD [BC] Stat 05/27/17 07:23 CULTURE SPUTUM + SMEAR [RM] Stat 05/27/17 07:30 CULTURE BLOOD [BC] Stat 05/27/17 07:35 RT Aerosol Therapy [RC] ASDIRECTED 05/27/17 07:38 MANUAL DIFFERENTIAL QA/NC [HEME] Stat 05/27/17 08:32 Sodium Chloride 0.9% [Normal Saline] 1,000 ml IV .BOLUS 05/27/17 08:45 D5 1/2 NS w/ 40 mEq/L KCl 1,000 ml IV ASDIRECTED Levofloxacin/Dextrose 5%-Water [Levaquin in D5W 750 MG/150 ML] 750 mg Premix Bag 1 bag IV ONETIME - Assessment/Plan Last 24 Hours: My Active Orders 05/27/17 07:22 Chest 2V [CR] Urgent CBC WITH AUTO DIFF [HEME] Stat CULTURE BLOOD [BC] Stat 05/27/17 07:23 CULTURE SPUTUM + SMEAR [RM] Stat 05/27/17 07:30 CULTURE BLOOD [BC] Stat 05/27/17 07:35 RT Aerosol Therapy [RC] ASDIRECTED 05/27/17 07:38 MANUAL DIFFERENTIAL QA/NC [HEME] Stat 05/27/17 08:32 Sodium Chloride 0.9% [Normal Saline] 1,000 ml IV .BOLUS 05/27/17 08:45 D5 1/2 NS w/ 40 mEq/L KCl 1,000 ml IV ASDIRECTED Levofloxacin/Dextrose 5%-Water [Levaquin in D5W 750 MG/150 ML] 750 mg Premix Bag 1 bag IV ONETIME
[2017-05-27] MEDS ORDERED: Albuterol/Ipratropium 3.0-0.5 MG/3 ML Neb Soln NEB ONE (07:35)
[2017-05-27 08:18] LABS: CHLORIDE,CL 100 mmol/L (101-111); SODIUM,NA 136 mmol/L (135-145)
[2017-05-27] MEDS ORDERED: Sodium Chloride 0.9% 1,000 ML IV ONE (08:32)
[2017-05-27] MEDS ORDERED: Levofloxacin/Dextrose 5%-Water 750 MG in Premix Bag 1 BAG IV ONE (08:45)
[2017-05-27] MEDS ORDERED: D5 1/2 NS w/ 40 mEq/L KCl 1,000 ML IV SCH (08:45)
[2017-05-27] MEDS ORDERED: Iopamidol 612 MG/ML 75 ML Bottle IVPUSH ONE (08:53)
--- NOTE | 2017-05-27 08:56 | CR ---
Clinical history: 57-year-old female cough. Interpretation: Upright PA lateral chest film abnormal. Asymmetric dense new consolidation left lung base with apparent underlying ipsilateral dependent pleu ral effusion (compared to previous exam 10 Dec 2016). Bilateral shaggy bronchitic pattern. Normal cardiac silhouette without cephalization of vascular flow or alveolar edema and no dependent e ffusion on the right. No discrete parenchymal lung nodule or mass lesion and no signs of hilar or mediastinal lymphadenopat hy. No pneumothorax.
[2017-05-27 09:24] VITALS: BP 104/53
[2017-05-27] MEDS ORDERED: Magnesium Sulfate/Water 2 GM in Premix Bag 1 BAG IV ONE (09:28)
--- NOTE | 2017-05-27 09:50 | CT ---
Clinical history: 57-year-old 176 pound female smoker with thrombocytopenia, history chronic liver di sease, cholecystectomy and left lower quadrant pain. CT scan abdomen 2011 revealed "large volume ascites, cirrhotic liver and splenomegaly". Scan technique: Volume acquisition of data from the abdomen and pelvis obtained without oral but duri ng/after intravenous infusion 75 cc nonionic Isovue contrast while patient was lying supine on the [facility] multi slice CT scanner [place], [place]. All data archived in [facility] PACS system for storage, reformatting and study. Interpretation: Abnormal. 1. Enlarged heterogeneously dense fatty and fibrotic chronic cirrhotic liver. No discrete intrahepati c mass or hepatoma and no sign of abnormal intra/\\slash extrahepatic biliary duct dilatation. Cholecy stectomy. 2. Splenomegaly. 3. *No current evidence of anasarca or ascites demonstrated on exam 26 August 2011. (Small volume fl uid pelvis). Varices. 4.*Asymmetric dense new dependent pleural effusion with underlying atelectasis or pneumonic infiltrat e left lung base. 5. Stomach, atrophic pancreas, and adrenal glands unremarkable i.e. negative. 6. Solitary 2 cm diameter upper pole cortical cyst left kidney. No sign of other renal cortical mass lesion, nephrolithiasis or obstructive uropathy. Symmetrically distended normal appearing urinary mid line urinary bladder. Normal midline uterus. 7. No pelvic or abdominal mass lesion, inflammatory dirty" peritoneal fat, signs of mechanical bowel obstruction or free air.
--- NOTE | 2017-05-31 07:32 | EKG ---
05/27/2017 - DONAVON MALONE TEMITOPE - FINDINGS: This 12-lead EKG shows a sinus tachycardia with a ventricular rate of 108. Normal axis and intervals. No acute ST-segment or T-wave changes. [facility] /[id number]
== END 2017-05-27 09:55 ==
LOC: DL.ED 07:10
DX: J18.9 Pneumonia, unspecified organism (principal); E80.6 Other disorders of bilirubin metabolism; D69.6 Thrombocytopenia, unspecified; I95.89 Other hypotension; E87.6 Hypokalemia; F17.210 Nicotine dependence, cigarettes, uncomplicated; Z88.8 Allergy status to other drugs, medicaments and biological substances
CPT/HCPCS: 36415; 71020; 74177; 80053; 83605; 83735; 85025; 87040; 87077; 93005; 94640; 96361; 96365; 96375; 99285; G0480; J1956; J3480; J7030; Q9967; 87186; 93010

== ENCOUNTER 2017-10-09 22:29 | Emergency (ER) | payer MEDICAID ==
[2017-10-09] MEDS ORDERED: Ondansetron 4 MG/2 ML SDV ONE (22:42)
[2017-10-09] MEDS ORDERED: Ondansetron 4 MG/2 ML SDV IV ONE (22:52)
[2017-10-09] MEDS ORDERED: Pantoprazole 80 MG in Sodium Chloride 0.9% 100 ML IV ONE (22:53)
[2017-10-09 23:33] LABS: CHLORIDE,CL 111 mmol/L (101-111); SODIUM,NA 142 mmol/L (135-145)
--- NOTE | 2017-10-10 00:44 | EDM.PDOC ---
ED HPI GENERAL MEDICAL PROBLEM - General Chief Complaint: Gastrointestinal Problem Stated Complaint: BY AMBULANCE Time Seen by Provider: 10/09/17 22:40 Source of Information: Reports: Patient, EMS, RN Notes Reviewed History Limitations: Reports: No Limitations - History of Present Illness INITIAL COMMENTS - FREE TEXT/NARRATIVE: ED with c/o throwing up red blood 4-5 times tonight. has hx of similar in past and got scared, . Vomiting started after last meal of applejuice and cup of fruit. Admits daily ETOH use, last drank this am. Stated, she "andrew up for a bit and eats then starts drinking again. Reported being in hospital one month ago. - Related Data Allergies Allergy/AdvReac Type Severity Reaction Status Date / Time pseudoephedrine Allergy Itching Verified 10/09/17 22:45 acetaminophen [From Tylenol] AdvReac Abdominal Verified 10/09/17 22:45 Cramps Home Meds: Home Meds . [No Known Home Meds] 10/09/17 [History] Past Medical History HEENT History: Reports: Other (See Below) Other HEENT History: wears glasses while awake Cardiovascular History: Reports: None Other Cardiovascular History: portal hypertension Respiratory History: Reports: Other (See Below) Other Respiratory History: SOB c exertion Gastrointestinal History: Reports: GI Bleed Other Gastrointestinal History: Heartburn Genitourinary History: Reports: None Musculoskeletal History: Reports: Back Pain, Chronic, Other (See Below) Other Musculoskeletal History: cramps in hands and calves. Neurological History: Reports: Migraines Psychiatric History: Reports: Addiction Other Psychiatric History: alcohol Endocrine/Metabolic History: Reports: None Hematologic History: Reports: Other (See Below) Other Hematologic History: chronic thrombocytopenia Immunologic History: Reports: None Oncologic (Cancer) History: Reports: None Dermatologic History: Reports: Cellulitis - Infectious Disease History Infectious Disease History: Reports: None - Past Surgical History GI Surgical History: Reports: Cholecystectomy Social & Family History - Family History Family Medical History: Noncontributory - Tobacco Use Smoking Status *Q: Current Every Day Smoker Years of Tobacco use: 30 Packs/Tins Daily: 0.5 Used Tobacco, but Quit: No Second Hand Smoke Exposure: Yes - Caffeine Use Caffeine Use: Reports: Coffee, Tea - Alcohol Use Days Per Week of Alcohol Use: 7 Number of Drinks Per Day: 10 Total Drinks Per Week: 70 - Recreational Drug Use Recreational Drug Use: No ED ROS GENERAL - Review of Systems Review Of Systems: ROS reveals no pertinent complaints other than HPI. ED EXAM, GI/ABD - Physical Exam Exam: See Below Exam Limited By: Language Barrier General Appearance: Alert, No Apparent Distress Ears: Normal External Exam, Normal TMs Nose: Normal Inspection Throat/Mouth: Normal Inspection, Normal Lips, Normal Oropharynx Head: Atraumatic, Normocephalic Neck: Normal Inspection Respiratory/Chest: No Respiratory Distress, Lungs Clear, Normal Breath Sounds Cardiovascular: Regular Rate, Rhythm GI/Abdominal Exam: Normal Bowel Sounds, Soft, Non-Tender. No: Distended, Guarding Rectal (Female) Exam: Heme - Stool Back Exam: Normal Inspection Extremities: Normal Inspection, Normal Range of Motion Neurological: Alert, Oriented, Slow to Respond Psychiatric: Normal Affect, Normal Mood Skin Exam: Warm, Dry, Jaundice Course - Vital Signs Last Recorded V/S: Last Vital Signs Temp 99.2 F 10/10/17 00:52 Pulse 109 H 10/10/17 00:52 Resp 16 10/10/17 00:52 BP 99/53 L 10/10/17 00:52 Pulse Ox 97 10/10/17 00:52 - Orders/Labs/Meds Labs: Laboratory Tests 10/09/17 10/09/17 10/09/17 Range/Units 23:00 23:00 23:00 WBC 6.3 (5.0-10.0) 10^3/uL RBC 3.19 L (4.2-5.4) 10^6/uL Hgb 10.8 L (12.0-16.0) g/dL Hct 32.4 L (37.0-47.0) % MCV 101.6 H D (80-100) fL MCH 33.9 (27.0-34.0) pg MCHC 33.3 (33.0-35.0) g/dL Plt Count 63 L (150-450) 10^3/uL Neut % (Auto) 90.2 H (42.2-75.2) % Lymph % (Auto) 5.6 L (20.5-50.1) % [place] % (Auto) 3.8 (2-8) % Eos % (Auto) 0.2 L (1.0-3.0) % Baso % (Auto) 0.2 (0.0-1.0) % PT 15.0 H (9.0-12.0) SEC INR 1.5 H (0.9-1.2) Sodium 142 (135-145) mmol/L Potassium 3.7 (3.6-5.0) mmol/L Chloride 111 (101-111) mmol/L Carbon Dioxide 23.0 (21.0-31.0) mmol/L Anion Gap 11.7 BUN 27 H (7-18) mg/dL Creatinine 0.6 (0.6-1.3) mg/dL Est Cr Clr Drug Dosing 79.00 mL/min Estimated GFR (MDRD) > 60 BUN/Creatinine Ratio 45.00 Glucose 120 H (74-105) mg/dL Calcium 7.5 L (8.4-10.2) mg/dl Total Bilirubin 5.2 H (0.2-1.0) mg/dL AST 96 H (10-42) IU/L ALT 58 (10-60) IU/L Alkaline Phosphatase 84 (42-121) IU/L Ammonia (11-35) umol/L Total Protein 5.8 L (6.7-8.2) g/dl Albumin 2.8 L (3.2-5.5) g/dl Globulin 3.0 Albumin/Globulin Ratio 0.93 Amylase 36 (28-100) U/L Lipase 25 (22-51) U/L Urine Color (YELLOW) Urine Appearance (CLEAR) Urine pH (5.0-9.0) Ur Specific [place] (1.005-1.030) Urine Protein (NEGATIVE) Urine Glucose (UA) (NEGATIVE) Urine Ketones (NEGATIVE) Urine Occult Blood (NEGATIVE) Urine Nitrite (NEGATIVE) Urine Bilirubin (NEGATIVE) Urine Urobilinogen (0.2-1.0) mg/dL Ur Leukocyte Esterase (NEGATIVE) Urine RBC /HPF Urine WBC (0-5/HPF) /HPF Ur Epithelial Cells /HPF Urine Bacteria (0-FEW/HPF) /HPF Urine Other Urine Opiates Screen (NEGATIVE) Ur Oxycodone Screen (NEGATIVE) Urine Methadone Screen (NEGATIVE) Ur Barbiturates Screen (NEGATIVE) U Tricyclic Antidepress (NEGATIVE) Ur Phencyclidine Scrn (NEGATIVE) Ur Amphetamine Screen (NEGATIVE) U Methamphetamines Scrn (NEGATIVE) Urine MDMA Screen (NEGATIVE) U Benzodiazepines Scrn (NEGATIVE) Urine Cocaine Screen (NEGATIVE) U Marijuana (THC) Screen (NEGATIVE) Ethyl Alcohol 116 mg/dL 10/09/17 10/09/17 10/09/17 Range/Units 23:00 23:16 23:16 WBC (5.0-10.0) 10^3/uL RBC (4.2-5.4) 10^6/uL Hgb (12.0-16.0) g/dL Hct (37.0-47.0) % MCV (80-100) fL MCH (27.0-34.0) pg MCHC (33.0-35.0) g/dL Plt Count (150-450) 10^3/uL Neut % (Auto) (42.2-75.2) % Lymph % (Auto) (20.5-50.1) % [place] % (Auto) (2-8) % Eos % (Auto) (1.0-3.0) % Baso % (Auto) (0.0-1.0) % PT (9.0-12.0) SEC INR (0.9-1.2) Sodium (135-145) mmol/L Potassium (3.6-5.0) mmol/L Chloride (101-111) mmol/L Carbon Dioxide (21.0-31.0) mmol/L Anion Gap BUN (7-18) mg/dL Creatinine (0.6-1.3) mg/dL Est Cr Clr Drug Dosing mL/min Estimated GFR (MDRD) BUN/Creatinine Ratio Glucose (74-105) mg/dL Calcium (8.4-10.2) mg/dl Total Bilirubin (0.2-1.0) mg/dL AST (10-42) IU/L ALT (10-60) IU/L Alkaline Phosphatase (42-121) IU/L Ammonia 194 H (11-35) umol/L Total Protein (6.7-8.2) g/dl Albumin (3.2-5.5) g/dl Globulin Albumin/Globulin Ratio Amylase (28-100) U/L Lipase (22-51) U/L Urine Color Dark yellow (YELLOW) Urine Appearance Slightly cloudy (CLEAR) Urine pH 7.0 (5.0-9.0) Ur Specific [place] 1.015 (1.005-1.030) Urine Protein 30 H (NEGATIVE) Urine Glucose (UA) Negative (NEGATIVE) Urine Ketones 15 H (NEGATIVE) Urine Occult Blood Trace-intact H (NEGATIVE) Urine Nitrite Negative (NEGATIVE) Urine Bilirubin Negative (NEGATIVE) Urine Urobilinogen 1.0 (0.2-1.0) mg/dL Ur Leukocyte Esterase Trace H (NEGATIVE) Urine RBC 0-5 /HPF Urine WBC 5-10 H (0-5/HPF) /HPF Ur Epithelial Cells Many H /HPF Urine Bacteria Many H (0-FEW/HPF) /HPF Urine Other See note Urine Opiates Screen Negative (NEGATIVE) Ur Oxycodone Screen Negative (NEGATIVE) Urine Methadone Screen Negative (NEGATIVE) Ur Barbiturates Screen Negative (NEGATIVE) U Tricyclic Antidepress Negative (NEGATIVE) Ur Phencyclidine Scrn Negative (NEGATIVE) Ur Amphetamine Screen Negative (NEGATIVE) U Methamphetamines Scrn Negative (NEGATIVE) Urine MDMA Screen Negative (NEGATIVE) U Benzodiazepines Scrn Negative (NEGATIVE) Urine Cocaine Screen Negative (NEGATIVE) U Marijuana (THC) Screen Negative (NEGATIVE) Ethyl Alcohol mg/dL Meds: Medications Discontinued Medications Generic Name Dose Route Start Last Admin Trade Name Manq PRN Reason Stop Dose Admin Pantoprazole Sodium 80 mg/ 100 mls @ 200 mls/hr 10/09/17 22:53 10/09/17 23:04 Sodium Chloride IV 10/09/17 23:22 200 mls/hr .BOLUS ONE Administration Ondansetron HCl Confirm 10/09/17 22:42 10/09/17 22:45 Zofran Administered 10/09/17 22:43 4 mg Dose Administration 4 mg .ROUTE .STK-MED ONE Ondansetron HCl 4 mg 10/09/17 22:52 10/09/17 22:59 Zofran IV 10/09/17 22:53 Not Given ONETIME ONE - Re-Assessments/Exams Free Text/Narrative Re-Assessment/Exam: 10/10/17 06:27 Sister here in room with patient. discussed finding with recommendation for transfer with recent upper GI bleeding and risk for further with continued ETOH use, and impaired liver functioning and jaundice. Patient refusing to either transfer or stay in hospital. Informed patient and sister, that she would seen to sign AMA paper as did not feel it was in patient's best interest. AMA form signed Departure - Departure Time of Disposition: 00:42 Disposition: Against Medical Advice 07 Condition: Undetermined Clinical Impression: Upper GI bleed, Left against medical advice, Hyperbilirubinemia, Intoxication, Hyperammonemia - Discharge Information Instructions: Upper Gastrointestinal Bleeding Referrals: PCP,None [Primary Care Provider] - Forms: ED Department Discharge Additional Instructions: bland diet omprazole 20mg daily follow up in clinic on Wednesday and recheck labs
[2017-10-10 00:53] VITALS: BP 99/53
== END 2017-10-10 00:59 | disposition left against medical advice (07) ==
LOC: DL.ED 22:29
DX: K92.2 Gastrointestinal hemorrhage, unspecified (principal); F10.129 Alcohol abuse with intoxication, unspecified; E80.6 Other disorders of bilirubin metabolism; E72.20 Disorder of urea cycle metabolism, unspecified; F17.210 Nicotine dependence, cigarettes, uncomplicated; K76.6 Portal hypertension; Y90.5 Blood alcohol level of 100-119 mg/100 ml; Z88.1 Allergy status to other antibiotic agents; Z90.49 Acquired absence of other specified parts of digestive tract; D69.6 Thrombocytopenia, unspecified
CPT/HCPCS: 36415; 80053; 80305; 81001; 82140; 82150; 82272; 83690; 85025; 85610; 96365; 96375; 99284; C9113; G0480; J2405; J7050

== ENCOUNTER 2018-09-18 08:38 | Emergency (ER) | payer MEDICAID ==
[~2018-09-18 08:38] MED LIST: Ondansetron 4 MG/2 ML SDV IV ONE; Pantoprazole 40 MG Vial IVPUSH ONE
--- NOTE | 2018-09-18 08:38 | EDM.PDOC ---
ED HPI GENERAL MEDICAL PROBLEM - General Stated Complaint: AMBULANCE Time Seen by Provider: 09/18/18 08:28 Source of Information: Reports: Patient History Limitations: Reports: No Limitations - History of Present Illness INITIAL COMMENTS - FREE TEXT/NARRATIVE: This 58 yo female patient was brought to the ED by [facility] due to vomiting blood. The patient reports she has been drinking Vodka (1 traveler per day) for the past 2 weeks. The patient estimates she drinks up to 1 liter per day. The patient reports she did have a drink of Vodka and water this morning prior to vomiting blood. The patient reports she has been noticing dark stools for the past couple of days. The patient reports diffuse abdominal pain today. The patient reports a history of a previous GI bleed (about 2 years ago). Onset: Today Onset Date: 09/18/18 Onset Time: 06:30 Duration: Constant Location: Reports: Abdomen Quality: Reports: Other Severity: Moderate Improves with: Reports: None Worsens with: Reports: None Context: Reports: Other Associated Symptoms: Reports: Nausea/Vomiting - Related Data Allergies Allergy/AdvReac Type Severity Reaction Status Date / Time ibuprofen Allergy Hives Verified 03/10/18 18:04 pseudoephedrine Allergy Itching Verified 03/10/18 18:04 acetaminophen [From Tylenol] AdvReac Abdominal Verified 03/10/18 18:04 Cramps Home Meds: Home Meds . [No Known Home Meds] 10/09/17 [History] Past Medical History HEENT History: Reports: Other (See Below) Other HEENT History: wears glasses while awake Cardiovascular History: Reports: None Other Cardiovascular History: portal hypertension Respiratory History: Reports: Other (See Below) Other Respiratory History: SOB c exertion Gastrointestinal History: Reports: GI Bleed Other Gastrointestinal History: Heartburn Genitourinary History: Reports: None Musculoskeletal History: Reports: Back Pain, Chronic, Other (See Below) Other Musculoskeletal History: cramps in hands and calves. Neurological History: Reports: Migraines Psychiatric History: Reports: Addiction Other Psychiatric History: alcohol Endocrine/Metabolic History: Reports: None Hematologic History: Reports: Other (See Below) Other Hematologic History: chronic thrombocytopenia Immunologic History: Reports: None Oncologic (Cancer) History: Reports: None Dermatologic History: Reports: Cellulitis - Infectious Disease History Infectious Disease History: Reports: None - Past Surgical History GI Surgical History: Reports: Cholecystectomy Social & Family History - Family History Family Medical History: Noncontributory - Caffeine Use Caffeine Use: Reports: Coffee ED ROS GENERAL - Review of Systems Review Of Systems: ROS reveals no pertinent complaints other than HPI. ED EXAM, GI/ABD - Physical Exam Exam: See Below Exam Limited By: No Limitations General Appearance: Alert, WD/WN, Moderate Distress Eyes: Bilateral: Normal Appearance, EOMI Ears: Normal External Exam Nose: Normal Inspection, Normal Mucosa, No Blood Throat/Mouth: Normal Inspection, Normal Lips, Normal Teeth, Normal Gums, Normal Oropharynx, Normal Voice, No Airway Compromise Head: Atraumatic, Normocephalic Neck: Normal Inspection, Supple, Non-Tender, Full Range of Motion Respiratory/Chest: No Respiratory Distress, Lungs Clear, Normal Breath Sounds, No Accessory Muscle Use, Chest Non-Tender Cardiovascular: Normal Peripheral Pulses, Regular Rate, Rhythm, No Edema, No Gallop, No JVD, No Murmur, No Rub GI/Abdominal Exam: Normal Bowel Sounds, Soft, No Organomegaly, No Distention, No Abnormal Bruit, No Mass, Pelvis Stable, Tender (diffuse abdominal tenderness) (Female) Exam: Deferred Rectal (Female) Exam: Deferred Back Exam: Normal Inspection, Full Range of Motion, NT Extremities: Normal Inspection, Normal Range of Motion, Non-Tender, Normal Capillary Refill, No Pedal Edema Neurological: Alert, Oriented, CN II-XII Intact, Normal Cognition, Normal Gait, Normal Reflexes, No Motor/Sensory Deficits Psychiatric: Normal Affect, Normal Mood Skin Exam: Warm, Dry, Intact, Normal Color, No Rash Lymphatic: No Adenopathy Course - Vital Signs Last Recorded V/S: Last Vital Signs Temp 36.7 C 09/18/18 08:34 Pulse 80 09/18/18 08:34 Resp 18 09/18/18 08:34 BP 111/60 09/18/18 08:34 Pulse Ox 99 09/18/18 08:34 - Orders/Labs/Meds Orders: Active Orders 24 hr Category Date Time Status CULTURE URINE [RM] Stat Lab 09/18/18 08:33 Received INR,PT,PROTHROMBIN TIME [COAG] Stat Lab 09/18/18 09:02 Ordered RED BLOOD CELLS LP [BBK] Stat Lab 09/18/18 08:14 Received TYPE AND SCREEN [BBK] Stat Lab 09/18/18 08:14 Received UA W/MICROSCOPIC [URIN] Stat Lab 09/18/18 08:33 Results Lactated Ringers [Ringers, Lactated] 1,000 ml Med 09/18/18 08:42 Active IV .BOLUS Medication Orders Lactated Ringer's (Ringers, Lactated) 1,000 mls @ 999 mls/hr IV .BOLUS ONE Stop: 09/18/18 09:42 Last Admin: 09/18/18 08:47 Dose: 999 mls/hr Labs: Laboratory Tests 09/18/18 09/18/18 09/18/18 Range/Units 08:14 08:14 08:14 WBC 4.6 L (5.0-10.0) 10^3/uL RBC 3.88 L (4.2-5.4) 10^6/uL Hgb 12.3 (12.0-16.0) g/dL Hct 37.8 (37.0-47.0) % MCV 97.4 D (80-100) fL MCH 31.7 (27.0-34.0) pg MCHC 32.5 L (33.0-35.0) g/dL Plt Count 59 L (150-450) 10^3/uL Neut % (Auto) 76.8 H (42.2-75.2) % Lymph % (Auto) 14.9 L (20.5-50.1) % Kim[place] % (Auto) 6.8 (2-8) % Eos % (Auto) 1.1 (1.0-3.0) % Baso % (Auto) 0.4 (0.0-1.0) % Sodium (135-145) mmol/L Potassium (3.6-5.0) mmol/L Chloride (101-111) mmol/L Carbon Dioxide (21.0-31.0) mmol/L Anion Gap BUN (7-18) mg/dL Creatinine (0.6-1.3) mg/dL Est Cr Clr Drug Dosing mL/min Estimated GFR (MDRD) BUN/Creatinine Ratio Glucose (74-105) mg/dL Calcium (8.4-10.2) mg/dl Total Bilirubin (0.2-1.0) mg/dL AST (10-42) IU/L ALT (10-60) IU/L Alkaline Phosphatase (42-121) IU/L Ammonia 153 H (11-35) umol/L Total Protein (6.7-8.2) g/dl Albumin (3.2-5.5) g/dl Globulin Albumin/Globulin Ratio Amylase 42 (28-100) U/L Lipase 31 (22-51) U/L Urine Color (YELLOW) Urine Appearance (CLEAR) Urine pH (5.0-9.0) Ur Specific [place] (1.005-1.030) Urine Protein (NEGATIVE) Urine Glucose (UA) (NEGATIVE) Urine Ketones (NEGATIVE) Urine Occult Blood (NEGATIVE) Urine Nitrite (NEGATIVE) Urine Bilirubin (NEGATIVE) Urine Urobilinogen (0.2-1.0) mg/dL Ur Leukocyte Esterase (NEGATIVE) Urine Opiates Screen (NEGATIVE) Ur Oxycodone Screen (NEGATIVE) Urine Methadone Screen (NEGATIVE) Ur Barbiturates Screen (NEGATIVE) U Tricyclic Antidepress (NEGATIVE) Ur Phencyclidine Scrn (NEGATIVE) Ur Amphetamine Screen (NEGATIVE) U Methamphetamines Scrn (NEGATIVE) Urine MDMA Screen (NEGATIVE) U Benzodiazepines Scrn (NEGATIVE) Urine Cocaine Screen (NEGATIVE) U Marijuana (THC) Screen (NEGATIVE) Ethyl Alcohol 107 mg/dL 09/18/18 09/18/18 09/18/18 Range/Units 08:14 08:33 08:33 WBC (5.0-10.0) 10^3/uL RBC (4.2-5.4) 10^6/uL Hgb (12.0-16.0) g/dL Hct (37.0-47.0) % MCV (80-100) fL MCH (27.0-34.0) pg MCHC (33.0-35.0) g/dL Plt Count (150-450) 10^3/uL Neut % (Auto) (42.2-75.2) % Lymph % (Auto) (20.5-50.1) % Kim[place] % (Auto) (2-8) % Eos % (Auto) (1.0-3.0) % Baso % (Auto) (0.0-1.0) % Sodium 139 (135-145) mmol/L Potassium 4.0 (3.6-5.0) mmol/L Chloride 109 (101-111) mmol/L Carbon Dioxide 21.0 (21.0-31.0) mmol/L Anion Gap 13.0 BUN 23 H (7-18) mg/dL Creatinine 0.6 (0.6-1.3) mg/dL Est Cr Clr Drug Dosing 78.06 mL/min Estimated GFR (MDRD) > 60 BUN/Creatinine Ratio 38.33 Glucose 95 (74-105) mg/dL Calcium 8.9 (8.4-10.2) mg/dl Total Bilirubin 3.9 H (0.2-1.0) mg/dL AST 62 H (10-42) IU/L ALT 27 (10-60) IU/L Alkaline Phosphatase 100 (42-121) IU/L Ammonia (11-35) umol/L Total Protein 6.7 (6.7-8.2) g/dl Albumin 2.9 L (3.2-5.5) g/dl Globulin 3.8 Albumin/Globulin Ratio 0.76 Amylase (28-100) U/L Lipase (22-51) U/L Urine Color Yellow (YELLOW) Urine Appearance Slightly cloudy (CLEAR) Urine pH 8.5 (5.0-9.0) Ur Specific [place] 1.015 (1.005-1.030) Urine Protein 30 H (NEGATIVE) Urine Glucose (UA) Negative (NEGATIVE) Urine Ketones 15 H (NEGATIVE) Urine Occult Blood Moderate H (NEGATIVE) Urine Nitrite Positive H (NEGATIVE) Urine Bilirubin Negative (NEGATIVE) Urine Urobilinogen 1.0 (0.2-1.0) mg/dL Ur Leukocyte Esterase Small H (NEGATIVE) Urine Opiates Screen Negative (NEGATIVE) Ur Oxycodone Screen Negative (NEGATIVE) Urine Methadone Screen Negative (NEGATIVE) Ur Barbiturates Screen Negative (NEGATIVE) U Tricyclic Antidepress Negative (NEGATIVE) Ur Phencyclidine Scrn Negative (NEGATIVE) Ur Amphetamine Screen Negative (NEGATIVE) U Methamphetamines Scrn Negative (NEGATIVE) Urine MDMA Screen Negative (NEGATIVE) U Benzodiazepines Scrn Negative (NEGATIVE) Urine Cocaine Screen Negative (NEGATIVE) U Marijuana (THC) Screen Negative (NEGATIVE) Ethyl Alcohol mg/dL Meds: Medications Generic Name Dose Route Start Last Admin Trade Name Freq PRN Reason Stop Dose Admin Lactated Ringer's 1,000 mls @ 999 mls/hr 09/18/18 08:42 09/18/18 08:47 Ringers, Lactated IV 09/18/18 09:42 999 mls/hr .BOLUS ONE Administration Discontinued Medications Generic Name Dose Route Start Last Admin Trade Name Pia PRN Reason Stop Dose Admin Octreotide Acetate 50 mcg 09/18/18 08:43 09/18/18 08:49 Sandostatin IVPUSH 09/18/18 08:44 50 mcg ONETIME ONE Administration Ondansetron HCl 4 mg 09/18/18 08:12 09/18/18 08:46 Zofran IV 09/18/18 08:13 4 mg ONETIME ONE Administration Pantoprazole Sodium 40 mg 09/18/18 08:12 09/18/18 08:46 Protonix Iv IVPUSH 09/18/18 08:13 40 mg ONETIME ONE Administration - Re-Assessments/Exams Free Text/Narrative Re-Assessment/Exam: 09/18/18 09:04 The patient had an emesis (250 mL) of apparent clotted blood in the ED. The patient had a second emesis of about 100 mL of clotted blood. Departure - Departure Time of Disposition: 09:05 Disposition: DC/Tfer to [facility] 02 Condition: Serious Clinical Impression: Acute GI bleeding - Discharge Information *PRESCRIPTION DRUG MONITORING PROGRAM REVIEWED*: Not Applicable *COPY OF PRESCRIPTION DRUG MONITORING REPORT IN PATIENT ELROY: Not Applicable Forms: Interfacility Transfer EMTALA Care Plan Goals: Discussed the patient's history, examination and lab results with Dr. Sanders. Dr. Sanders accepted the patient for continued evaluation and management. The patient will be transported by [facility]. - My Orders Last 24 Hours: My Active Orders 09/18/18 08:14 RED BLOOD CELLS LP [BBK] Stat TYPE AND SCREEN [BBK] Stat 09/18/18 08:33 CULTURE URINE [RM] Stat UA W/MICROSCOPIC [URIN] Stat 09/18/18 08:42 Lactated Ringers [Ringers, Lactated] 1,000 ml IV .BOLUS 09/18/18 09:02 INR,PT,PROTHROMBIN TIME [COAG] Stat - Assessment/Plan Last 24 Hours: My Active Orders 09/18/18 08:14 RED BLOOD CELLS LP [BBK] Stat TYPE AND SCREEN [BBK] Stat 09/18/18 08:33 CULTURE URINE [RM] Stat UA W/MICROSCOPIC [URIN] Stat 09/18/18 08:42 Lactated Ringers [Ringers, Lactated] 1,000 ml IV .BOLUS 09/18/18 09:02 INR,PT,PROTHROMBIN TIME [COAG] Stat
[2018-09-18] MEDS ORDERED: Lactated Ringers 1,000 ML IV ONE (08:42)
[2018-09-18 08:43] LABS: CHLORIDE,CL 109 mmol/L (101-111); SODIUM,NA 139 mmol/L (135-145)
[2018-09-18] MEDS ORDERED: Octreotide 100 MCG/ML SDV IVPUSH ONE (08:43)
[2018-09-18] MEDS ORDERED: Metoclopramide 10 MG/2 ML SDV IVPUSH ONE (09:38)
[2018-09-18] MEDS ORDERED: Metoclopramide 10 MG/2 ML SDV ONE (09:40)
[2018-09-18 09:57] VITALS: BP 112/49
== END 2018-09-18 10:05 ==
LOC: DL.ED 08:38
DX: K92.2 Gastrointestinal hemorrhage, unspecified (principal); Z88.6 Allergy status to analgesic agent
CPT/HCPCS: 36415; 36430; 80053; 80305-QW; 81001; 82140; 82150; 82272; 83690; 85025; 85610; 86850; 86900; 86901; 86920; 86922; 87086; 87088; 87186; 96365; 96375; 99285; C9113; G0480; J2354-GY; J2405; J2765; J7120; P9016

== ENCOUNTER 2019-01-26 18:24 | Emergency (ER) | payer MEDICAID ==
[~2019-01-26 18:24] MED LIST changes: -Ondansetron 4 MG/2 ML SDV IV ONE
--- NOTE | 2019-01-26 18:25 | EDM.PDOC ---
<Cesar Chun M - Last Filed: 01/26/19 18:18> ED HPI GENERAL MEDICAL PROBLEM - General Chief Complaint: Gastrointestinal Problem Stated Complaint: AMBULANCE Time Seen by Provider: 01/26/19 18:10 Source of Information: Reports: Patient History Limitations: Reports: No Limitations - History of Present Illness INITIAL COMMENTS - FREE TEXT/NARRATIVE: This 58 yo female patient was brought to the ED by [facility] due to vomiting blood. The patient reports her symptoms started yesterday. The patient reports she was throwing up all night last night. The patient reports she has had a history of GI bleeding. The patient reports the last time she was hospitalized for a GI bleed she was discharged on medications. The patient reports she took the medications until they were gone, but did not follow-up with her primary care facility. The patient reports her last ETOH was yesterday right before she started to get sick. The patient reports she did not attempt to be seen in the clinic due to not having a ride. Onset: Today Onset Date: 01/25/19 Duration: Constant Location: Reports: Abdomen Quality: Reports: Other Severity: Moderate Improves with: Reports: None Worsens with: Reports: None Context: Reports: Other Associated Symptoms: Reports: No Other Symptoms Treatments POLISHER DIAL: Reports: NSAIDS - Related Data Allergies Allergy/AdvReac Type Severity Reaction Status Date / Time pseudoephedrine Allergy Itching Verified 01/26/19 18:16 acetaminophen [From Tylenol] AdvReac Abdominal Verified 01/26/19 18:16 Cramps Home Meds: Home Meds . [No Known Home Meds] 10/09/17 [History] Past Medical History HEENT History: Reports: Other (See Below) Other HEENT History: wears glasses while awake Cardiovascular History: Reports: None Other Cardiovascular History: portal hypertension Respiratory History: Reports: Other (See Below) Other Respiratory History: SOB c exertion Gastrointestinal History: Reports: GI Bleed Other Gastrointestinal History: Heartburn Genitourinary History: Reports: None Musculoskeletal History: Reports: Back Pain, Chronic, Other (See Below) Other Musculoskeletal History: cramps in hands and calves. Neurological History: Reports: Migraines Psychiatric History: Reports: Addiction Other Psychiatric History: alcohol Endocrine/Metabolic History: Reports: None Hematologic History: Reports: Other (See Below) Other Hematologic History: chronic thrombocytopenia Immunologic History: Reports: None Oncologic (Cancer) History: Reports: None Dermatologic History: Reports: Cellulitis - Infectious Disease History Infectious Disease History: Reports: None - Past Surgical History GI Surgical History: Reports: Cholecystectomy Social & Family History - Family History Family Medical History: Noncontributory - Caffeine Use Caffeine Use: Reports: Coffee ED ROS GENERAL - Review of Systems Review Of Systems: ROS reveals no pertinent complaints other than HPI. ED EXAM, GI/ABD - Physical Exam Exam: See Below Exam Limited By: No Limitations General Appearance: Alert, WD/WN, Moderate Distress Eyes: Bilateral: Normal Appearance, EOMI Ears: Normal External Exam, Normal Canal, Hearing Grossly Normal, Normal TMs Nose: Normal Inspection, Normal Mucosa, No Blood Throat/Mouth: Normal Inspection, Normal Lips, Normal Teeth, Normal Gums, Normal Oropharynx, Normal Voice, No Airway Compromise Head: Atraumatic, Normocephalic Neck: Normal Inspection, Supple, Non-Tender, Full Range of Motion Respiratory/Chest: No Respiratory Distress, Lungs Clear, Normal Breath Sounds, No Accessory Muscle Use, Chest Non-Tender Cardiovascular: Normal Peripheral Pulses, Regular Rate, Rhythm, No Edema, No Gallop, No JVD, No Murmur, No Rub GI/Abdominal Exam: Normal Bowel Sounds, Soft, No Organomegaly, No Distention, No Abnormal Bruit, No Mass, Pelvis Stable, Tender (Female) Exam: Deferred Rectal (Female) Exam: Deferred Back Exam: Normal Inspection, Full Range of Motion, NT Extremities: Normal Inspection, Normal Range of Motion, Non-Tender, Normal Capillary Refill, No Pedal Edema Neurological: Alert, Oriented, CN II-XII Intact, Normal Cognition, Normal Gait, Normal Reflexes, No Motor/Sensory Deficits Psychiatric: Normal Affect, Normal Mood Skin Exam: Warm, Dry, Intact, Normal Color, No Rash Lymphatic: No Adenopathy Course - Vital Signs Last Recorded V/S: Last Vital Signs Temp 37.7 C 01/26/19 19:06 Pulse 106 H 01/26/19 19:06 Resp 20 01/26/19 19:06 BP 86/40 L 01/26/19 19:06 Pulse Ox 93 L 01/26/19 19:06 - Orders/Labs/Meds Orders: Active Orders 24 hr Category Date Time Status CULTURE URINE [RM] Stat Lab 01/26/19 18:37 Received Octreotide [SandoSTATIN] Med 01/26/19 19:24 Once 50 mcg IVPUSH ONETIME ONE Sodium Chloride 0.9% [Normal Saline] 1,000 ml Med 01/26/19 19:15 Active IV ASDIRECTED Medication Orders Sodium Chloride (Normal Saline) 1,000 mls @ 500 mls/hr IV ASDIRECTED [facility] Labs: Laboratory Tests 01/26/19 01/26/19 01/26/19 Range/Units 18:20 18:20 18:20 WBC 10.2 H (5.0-10.0) 10^3/uL RBC 2.84 L (4.2-5.4) 10^6/uL Hgb 8.1 L D (12.0-16.0) g/dL Hct 27.3 L (37.0-47.0) % MCV 96.1 (80-100) fL MCH 28.5 (27.0-34.0) pg MCHC 29.7 L (33.0-35.0) g/dL Plt Count 105 L (150-450) 10^3/uL Neut % (Auto) 79.6 H (42.2-75.2) % Lymph % (Auto) 6.3 L (20.5-50.1) % [place] % (Auto) 13.9 H (2-8) % Eos % (Auto) 0.1 L (1.0-3.0) % Baso % (Auto) 0.1 (0.0-1.0) % PT (9.0-12.0) SEC INR (0.9-1.2) Sodium (135-145) mmol/L Potassium (3.6-5.0) mmol/L Chloride (101-111) mmol/L Carbon Dioxide (21.0-31.0) mmol/L Anion Gap BUN (7-18) mg/dL Creatinine (0.6-1.3) mg/dL Est Cr Clr Drug Dosing Estimated GFR (MDRD) BUN/Creatinine Ratio Glucose (74-105) mg/dL Calcium (8.4-10.2) mg/dl Total Bilirubin (0.2-1.0) mg/dL AST (10-42) IU/L ALT (10-60) IU/L Alkaline Phosphatase (42-121) IU/L Ammonia 82 H (11-35) umol/L Total Protein (6.7-8.2) g/dl Albumin (3.2-5.5) g/dl Globulin Albumin/Globulin Ratio Amylase 18 L (28-100) U/L Lipase 25 (22-51) U/L Urine Color (YELLOW) Urine Appearance (CLEAR) Urine pH (5.0-9.0) Ur Specific [place] (1.005-1.030) Urine Protein (NEGATIVE) Urine Glucose (UA) (NEGATIVE) Urine Ketones (NEGATIVE) Urine Occult Blood (NEGATIVE) Urine Nitrite (NEGATIVE) Urine Bilirubin (NEGATIVE) Urine Urobilinogen (0.2-1.0) mg/dL Ur Leukocyte Esterase (NEGATIVE) Urine RBC /HPF Urine WBC (0-5/HPF) /HPF Ur Epithelial Cells (NOT SEEN) /HPF Urine Bacteria (0-FEW/HPF) /HPF Urine Mucus (NOT SEEN) /LPF Urine Opiates Screen (NEGATIVE) Ur Oxycodone Screen (NEGATIVE) Urine Methadone Screen (NEGATIVE) Ur Barbiturates Screen (NEGATIVE) U Tricyclic Antidepress (NEGATIVE) Ur Phencyclidine Scrn (NEGATIVE) Ur Amphetamine Screen (NEGATIVE) U Methamphetamines Scrn (NEGATIVE) Urine MDMA Screen (NEGATIVE) U Benzodiazepines Scrn (NEGATIVE) Urine Cocaine Screen (NEGATIVE) U Marijuana (THC) Screen (NEGATIVE) Ethyl Alcohol < 5 mg/dL 01/26/19 01/26/19 01/26/19 Range/Units 18:20 18:20 18:37 WBC (5.0-10.0) 10^3/uL RBC (4.2-5.4) 10^6/uL Hgb (12.0-16.0) g/dL Hct (37.0-47.0) % MCV (80-100) fL MCH (27.0-34.0) pg MCHC (33.0-35.0) g/dL Plt Count (150-450) 10^3/uL Neut % (Auto) (42.2-75.2) % Lymph % (Auto) (20.5-50.1) % [place] % (Auto) (2-8) % Eos % (Auto) (1.0-3.0) % Baso % (Auto) (0.0-1.0) % PT 17.2 H (9.0-12.0) SEC INR 1.7 H (0.9-1.2) Sodium 141 (135-145) mmol/L Potassium 3.5 L (3.6-5.0) mmol/L Chloride 111 (101-111) mmol/L Carbon Dioxide 20.0 L (21.0-31.0) mmol/L Anion Gap 13.5 BUN 31 H (7-18) mg/dL Creatinine 0.7 (0.6-1.3) mg/dL Est Cr Clr Drug Dosing TNP Estimated GFR (MDRD) > 60 BUN/Creatinine Ratio 44.28 Glucose 134 H (74-105) mg/dL Calcium 8.1 L (8.4-10.2) mg/dl Total Bilirubin 10.3 H (0.2-1.0) mg/dL AST 74 H (10-42) IU/L ALT 33 (10-60) IU/L Alkaline Phosphatase 95 (42-121) IU/L Ammonia (11-35) umol/L Total Protein 5.2 L (6.7-8.2) g/dl Albumin 2.2 L (3.2-5.5) g/dl Globulin 3.0 Albumin/Globulin Ratio 0.73 Amylase (28-100) U/L Lipase (22-51) U/L Urine Color [place] (YELLOW) Urine Appearance Cloudy (CLEAR) Urine pH 5.5 (5.0-9.0) Ur Specific [place] 1.010 (1.005-1.030) Urine Protein 30 H (NEGATIVE) Urine Glucose (UA) 100 H (NEGATIVE) Urine Ketones Trace H (NEGATIVE) Urine Occult Blood Large H (NEGATIVE) Urine Nitrite Negative (NEGATIVE) Urine Bilirubin Large H (NEGATIVE) Urine Urobilinogen 2.0 H (0.2-1.0) mg/dL Ur Leukocyte Esterase Small H (NEGATIVE) Urine RBC 10-20 H /HPF Urine WBC 50-75 H (0-5/HPF) /HPF Ur Epithelial Cells Many H (NOT SEEN) /HPF Urine Bacteria Many H (0-FEW/HPF) /HPF Urine Mucus Moderate H (NOT SEEN) /LPF Urine Opiates Screen (NEGATIVE) Ur Oxycodone Screen (NEGATIVE) Urine Methadone Screen (NEGATIVE) Ur Barbiturates Screen (NEGATIVE) U Tricyclic Antidepress (NEGATIVE) Ur Phencyclidine Scrn (NEGATIVE) Ur Amphetamine Screen (NEGATIVE) U Methamphetamines Scrn (NEGATIVE) Urine MDMA Screen (NEGATIVE) U Benzodiazepines Scrn (NEGATIVE) Urine Cocaine Screen (NEGATIVE) U Marijuana (THC) Screen (NEGATIVE) Ethyl Alcohol mg/dL 01/26/19 Range/Units 18:37 WBC (5.0-10.0) 10^3/uL RBC (4.2-5.4) 10^6/uL Hgb (12.0-16.0) g/dL Hct (37.0-47.0) % MCV (80-100) fL MCH (27.0-34.0) pg MCHC (33.0-35.0) g/dL Plt Count (150-450) 10^3/uL Neut % (Auto) (42.2-75.2) % Lymph % (Auto) (20.5-50.1) % [place] % (Auto) (2-8) % Eos % (Auto) (1.0-3.0) % Baso % (Auto) (0.0-1.0) % PT (9.0-12.0) SEC INR (0.9-1.2) Sodium (135-145) mmol/L Potassium (3.6-5.0) mmol/L Chloride (101-111) mmol/L Carbon Dioxide (21.0-31.0) mmol/L Anion Gap BUN (7-18) mg/dL Creatinine (0.6-1.3) mg/dL Est Cr Clr Drug Dosing Estimated GFR (MDRD) BUN/Creatinine Ratio Glucose (74-105) mg/dL Calcium (8.4-10.2) mg/dl Total Bilirubin (0.2-1.0) mg/dL AST (10-42) IU/L ALT (10-60) IU/L Alkaline Phosphatase (42-121) IU/L Ammonia (11-35) umol/L Total Protein (6.7-8.2) g/dl Albumin (3.2-5.5) g/dl Globulin Albumin/Globulin Ratio Amylase (28-100) U/L Lipase (22-51) U/L Urine Color (YELLOW) Urine Appearance (CLEAR) Urine pH (5.0-9.0) Ur Specific [place] (1.005-1.030) Urine Protein (NEGATIVE) Urine Glucose (UA) (NEGATIVE) Urine Ketones (NEGATIVE) Urine Occult Blood (NEGATIVE) Urine Nitrite (NEGATIVE) Urine Bilirubin (NEGATIVE) Urine Urobilinogen (0.2-1.0) mg/dL Ur Leukocyte Esterase (NEGATIVE) Urine RBC /HPF Urine WBC (0-5/HPF) /HPF Ur Epithelial Cells (NOT SEEN) /HPF Urine Bacteria (0-FEW/HPF) /HPF Urine Mucus (NOT SEEN) /LPF Urine Opiates Screen Negative (NEGATIVE) Ur Oxycodone Screen Negative (NEGATIVE) Urine Methadone Screen Negative (NEGATIVE) Ur Barbiturates Screen Negative (NEGATIVE) U Tricyclic Antidepress Negative (NEGATIVE) Ur Phencyclidine Scrn Negative (NEGATIVE) Ur Amphetamine Screen Negative (NEGATIVE) U Methamphetamines Scrn Negative (NEGATIVE) Urine MDMA Screen Negative (NEGATIVE) U Benzodiazepines Scrn Negative (NEGATIVE) Urine Cocaine Screen Negative (NEGATIVE) U Marijuana (THC) Screen Negative (NEGATIVE) Ethyl Alcohol mg/dL Meds: Medications Generic Name Dose Route Start Last Admin Trade Name Freq PRN Reason Stop Dose Admin Sodium Chloride 1,000 mls @ 500 mls/hr 01/26/19 19:15 Normal Saline IV ASDIRECTED SARINA Discontinued Medications Generic Name Dose Route Start Last Admin Trade Name Freq PRN Reason Stop Dose Admin Pantoprazole Sodium 40 mg 01/26/19 18:12 01/26/19 18:19 Protonix Iv IVPUSH 01/26/19 18:13 40 mg ONETIME ONE Administration Departure - Departure Disposition: DC/Tfer to [facility] 02 Clinical Impression: Acute GI bleeding, Hyperammonemia, Hyperbilirubinemia, Upper GI bleed - Discharge Information Forms: Interfacility Transfer EMTALA - My Orders Last 24 Hours: My Active Orders 01/26/19 19:15 Sodium Chloride 0.9% [Normal Saline] 1,000 ml IV ASDIRECTED 01/26/19 19:24 Octreotide [SandoSTATIN] 50 mcg IVPUSH ONETIME ONE - Assessment/Plan Last 24 Hours: My Active Orders 01/26/19 19:15 Sodium Chloride 0.9% [Normal Saline] 1,000 ml IV ASDIRECTED 01/26/19 19:24 Octreotide [SandoSTATIN] 50 mcg IVPUSH ONETIME ONE <North Sanders - Last Filed: 01/26/19 19:27> Course - Re-Assessments/Exams Free Text/Narrative Re-Assessment/Exam: 01/26/19 19:[address] Martinez @ who kindly accepted pt. Departure - Departure Time of Disposition: 19:26 Condition: Fair
[2019-01-26 18:46] LABS: ANION GAP 13.5; CHLORIDE,CL 111 mmol/L (101-111); SODIUM,NA 141 mmol/L (135-145)
[2019-01-26 19:06] VITALS: BP 86/40
[2019-01-26] MEDS ORDERED: Sodium Chloride 0.9% 1,000 ML IV SCH (19:15)
[2019-01-26] MEDS ORDERED: Octreotide 100 MCG/ML SDV IVPUSH ONE (19:24)
[2019-01-26] MEDS ORDERED: Metoclopramide 10 MG/2 ML SDV IVPUSH ONE (19:34)
== END 2019-01-26 19:55 ==
LOC: DL.ED 18:24
DX: K92.2 Gastrointestinal hemorrhage, unspecified (principal); E72.20 Disorder of urea cycle metabolism, unspecified; K76.6 Portal hypertension; E80.6 Other disorders of bilirubin metabolism; Z88.8 Allergy status to other drugs, medicaments and biological substances
CPT/HCPCS: 36415; 80053; 80305; 81001; 82140; 82150; 83690; 85025; 85610; 87086; 87088; 87186; 96374; 96375; 99285; C9113; G0480; J2354; J2765; J7030

== ENCOUNTER 2021-01-01 15:58 | Emergency (ER) | payer MEDICAID ==
[2021-01-01] MEDS ORDERED: Albuterol/Ipratropium 3.0-0.5 MG/3 ML Neb Soln NEB ONE (16:15)
[2021-01-01] MEDS ORDERED: Furosemide 80 MG Tab PO ONE (16:40)
[2021-01-01] MEDS ORDERED: Furosemide 40 MG Tab PO ONE (16:47)
--- NOTE | 2021-01-01 16:50 | EDM.PDOC ---
Scribed by Debbie Gabriel 01/01/21 0823 for Josesito Munoz MD ED HPI GENERAL MEDICAL PROBLEM - General Chief Complaint: General Stated Complaint: AMBULANCE Time Seen by Provider: 01/01/21 16:00 Source of Information: Reports: Patient, EMS, EMS Notes Reviewed, RN, RN Notes Reviewed History Limitations: Reports: No Limitations - History of Present Illness INITIAL COMMENTS - FREE TEXT/NARRATIVE: Patient arrived to ED by [facility] stating that she is ok. EMS report that they were called for increasing shortness of breath since this A.M. and headache. Patient states that she has been drinking "a lot" due to daughter's memorial. States that she is not any more short of breath than usual. Patient also states has not used her nebulizer today and has not taken her "pee-pee" pills. Shortly after arrival pt refuses any further medical care, lab draw, x-ray etc. Pt has called her daughter and states she is leaving. Onset: Today Duration: Getting Worse Location: Reports: Chest Severity: Moderate Improves with: Reports: None Worsens with: Reports: None Associated Symptoms: Reports: No Other Symptoms - Related Data Allergies Allergy/AdvReac Type Severity Reaction Status Date / Time pseudoephedrine Allergy Itching Verified 01/01/21 16:38 acetaminophen [From Tylenol] AdvReac Abdominal Verified 01/01/21 16:38 Cramps Home Meds: Home Meds "[place] [facility]" 01/01/21 [History] Meds For Leg Cramps 01/01/21 [History] Neb 01/01/21 [History] Past Medical History HEENT History: Reports: Other (See Below) Other HEENT History: wears glasses while awake Cardiovascular History: Reports: None Other Cardiovascular History: portal hypertension Respiratory History: Reports: Other (See Below) Other Respiratory History: SOB c exertion Gastrointestinal History: Reports: GI Bleed Other Gastrointestinal History: Heartburn Genitourinary History: Reports: None Musculoskeletal History: Reports: Back Pain, Chronic, Other (See Below) Other Musculoskeletal History: cramps in hands and calves. Neurological History: Reports: Migraines Psychiatric History: Reports: Addiction Other Psychiatric History: alcohol Endocrine/Metabolic History: Reports: None Hematologic History: Reports: Other (See Below) Other Hematologic History: chronic thrombocytopenia Immunologic History: Reports: None Oncologic (Cancer) History: Reports: None Dermatologic History: Reports: Cellulitis - Infectious Disease History Infectious Disease History: Reports: None - Past Surgical History GI Surgical History: Reports: Cholecystectomy Social & Family History - Family History Family Medical History: No Pertinent Family History - Caffeine Use Caffeine Use: Reports: Coffee ED ROS GENERAL - Review of Systems Review Of Systems: Comprehensive ROS is negative, except as noted in HPI. ED EXAM, GENERAL - Physical Exam Exam: See Below Exam Limited By: Intoxication General Appearance: Alert, No Apparent Distress Eye Exam: Bilateral Eye: Normal Inspection Nose: Normal Inspection, No Blood Throat/Mouth: Normal Lips, Normal Voice, No Airway Compromise Head: Atraumatic, Normocephalic Neck: Normal Inspection Respiratory/Chest: No Respiratory Distress, No Accessory Muscle Use, Chest Non- Tender, Decreased Breath Sounds, Rales, Wheezing Cardiovascular: Regular Rate, Rhythm, Other (+3 pitting edema to knees B/L) GI/Abdominal: Normal Bowel Sounds, Soft, Non-Tender Back Exam: Normal Inspection, Full Range of Motion Extremities: Normal Range of Motion, Non-Tender, Normal Capillary Refill, Pedal Edema. No: Jose's Sign Neurological: Alert, Oriented, Normal Cognition, Normal Gait, No Motor/Sensory Deficits Psychiatric: Normal Affect, Normal Mood Skin Exam: Warm, Dry, Intact, Normal Color Course - Vital Signs Last Recorded V/S: Last Vital Signs Temp 98.6 F 01/01/21 15:58 Pulse 85 01/01/21 16:24 Resp 28 H 01/01/21 15:58 BP 132/61 01/01/21 15:58 Pulse Ox 93 L 01/01/21 15:58 - Orders/Labs/Meds Orders: Active Orders 24 hr Category Date Time Status RT Aerosol Therapy [RC] ASDIRECTED Care 01/01/21 16:15 Active Chest 1V Frontal [CR] Stat Exams 01/01/21 16:39 Ordered B-TYPE NATRIURETIC PEPTIDE,BNP [CHEM] Stat Lab 01/01/21 16:39 Ordered CBC WITH AUTO DIFF [HEME] Stat Lab 01/01/21 16:39 Ordered COMPREHENSIVE METABOLIC PN,CMP [CHEM] Stat Lab 01/01/21 16:39 Ordered ETHANOL BLOOD MEDICAL [CHEM] Stat Lab 01/01/21 16:39 Ordered Meds: Medications Discontinued Medications Generic Name Dose Route Start Last Admin Trade Name Freq PRN Reason Stop Dose Admin Albuterol/Ipratropium 3 ml 01/01/21 16:15 01/01/21 16:24 Albuterol/Ipratropium 3.0-0.5 Mg/3 Ml Neb Soln NEB 01/01/21 16:16 3 ml ONETIME ONE Administration Furosemide 80 mg 01/01/21 16:40 Furosemide 80 Mg Tab PO 01/01/21 16:41 ONETIME ONE - Re-Assessments/Exams Free Text/Narrative Re-Assessment/Exam: 01/01/21 16:49 Pt wishes to leave AMA and will not participate in any discussion as to risks of leaving, etc. Departure - Departure Time of Disposition: 16:42 Disposition: Against Medical Advice 07 Condition: Undetermined Clinical Impression: Left against medical advice CHF (congestive heart failure) Qualifiers: Heart failure type: unspecified Heart failure chronicity: unspecified Qualified Code(s): I50.9 - Heart failure, unspecified Alcohol intoxication Qualifiers: Complication of substance-induced condition: uncomplicated Qualified Code(s): F10.920 - Alcohol use, unspecified with intoxication, uncomplicated - Discharge Information *PRESCRIPTION DRUG MONITORING PROGRAM REVIEWED*: Not Applicable *COPY OF PRESCRIPTION DRUG MONITORING REPORT IN PATIENT ELROY: Not Applicable Instructions: Chronic Obstructive Pulmonary Disease Exacerbation, [id number], Alcohol Intoxication, [id number], Peripheral Edema Forms: ED Department Discharge Additional Instructions: Take your medications exactly as prescribed. Abstain from alcohol consumption. Follow up in clinic next week for recheck. Return to ER if worse at any time. Sepsis Event Note (ED) - Focused Exam Vital Signs: Vital Signs Temp Pulse Resp BP Pulse Ox 01/01/21 16:24 85 01/01/21 15:58 98.6 F 84 28 H 132/61 93 L - My Orders Last 24 Hours: My Active Orders 01/01/21 16:15 RT Aerosol Therapy [RC] ASDIRECTED 01/01/21 16:39 Chest 1V Frontal [CR] Stat B-TYPE NATRIURETIC PEPTIDE,BNP [CHEM] Stat CBC WITH AUTO DIFF [HEME] Stat COMPREHENSIVE METABOLIC PN,CMP [CHEM] Stat ETHANOL BLOOD MEDICAL [CHEM] Stat - Assessment/Plan Last 24 Hours: My Active Orders 01/01/21 16:15 RT Aerosol Therapy [RC] ASDIRECTED 01/01/21 16:39 Chest 1V Frontal [CR] Stat B-TYPE NATRIURETIC PEPTIDE,BNP [CHEM] Stat CBC WITH AUTO DIFF [HEME] Stat COMPREHENSIVE METABOLIC PN,CMP [CHEM] Stat ETHANOL BLOOD MEDICAL [CHEM] Stat I have read and agree with the documentation that has been completed regarding this visit. By signing this record, I attest that the documentation was completed in my physical presence and is an accurate record of the encounter.
[2021-01-01 16:58] VITALS: BP 107/56; PULSE 78
[2021-01-01 17:35] LABS: ANION GAP 13.4 mEq/L (7-13); CHLORIDE,CL 112 mmol/L (98-107); SODIUM,NA 149 mmol/L (136-145)
== END 2021-01-01 17:07 | disposition left against medical advice (07) ==
LOC: DL.ED 15:58
DX: I50.9 Heart failure, unspecified (principal); F10.129 Alcohol abuse with intoxication, unspecified; R60.0 Localized edema; Z53.8 Procedure and treatment not carried out for other reasons; Z88.8 Allergy status to other drugs, medicaments and biological substances
CPT/HCPCS: 36415; 80053; 80307; 83880; 85025; 94640; 99285; A9270; 99283; J7620-GY

== ENCOUNTER 2023-03-23 19:53 | Emergency (ER) | payer MEDICAID ==
[2023-03-23] MEDS ORDERED: Sodium Chloride 0.9% 10 ML Syringe FLUSH PRN (20:22)
[2023-03-23] MEDS ORDERED: Pantoprazole 40 MG Vial IVPUSH ONE (20:24)
[2023-03-23] MEDS ORDERED: Pantoprazole 80 MG in Sodium Chloride 0.9% 100 ML IV SCH (20:30)
[2023-03-23 20:31] LABS: BASOPHILS PERCENT AUTO 0.2 % (0.0-1.0); EOSINOPHILS PERCENT AUTO 0.2 % (1.0-3.0); HEMATOCRIT 30.8 % (37.0-47.0); HEMOGLOBIN 9.8 g/dL (12.0-16.0); LYMPHOCYTES PERCENT AUTO 8.1 % (20.5-50.1); MEAN CORPUSCULAR HEMOGLOBIN 34.5 pg (27.0-34.0); MEAN CORPUSCULAR HGB CONC 31.8 g/dL (33.0-35.0); MEAN CORPUSCULAR VOLUME 108.5 fL (80-100); MONOCYTES PERCENT AUTO 10.1 % (2-8); NEUTROPHILS PERCENT AUTO 81.4 % (42.2-75.2); PLATELET COUNT,PLT 111 10^3/uL (150-450); RED BLOOD CELL COUNT 2.84 10^6/uL (4.2-5.4); WHITE BLOOD CELL COUNT,WBC 8.6 10^3/uL (5.0-10.0)
[2023-03-23] MEDS: Octreotide 100 MCG in Sodium Chloride 0.9% 99 ML IV SCH ×2 (20:38→23:05)
[2023-03-23 20:51] LABS: ALANINE AMINOTRANSFERASE,ALT 18 U/L (14-59); ALBUMIN 1.8 g/dL (3.4-5.0); ALKALINE PHOSPHATASE 144 U/L (46-116); ANION GAP 11.4 mEq/L (7-13); ASPARTATE AMNIOTRANSFERASE,AST 53 U/L (15-37); BILIRUBIN TOTAL 13.3 mg/dL (0.2-1.0); BLOOD UREA NITROGEN,BUN 36 mg/dL (7-18); BUN/CREATININE RATIO 38.7 (No establ ref range); C-REACTIVE PROTEIN 3.7 mg/dL (0.0-0.9); CALCIUM 7.7 mg/dL (8.5-10.1); CARBON DIOXIDE,CO2 27 mmol/L (21-32); CHLORIDE,CL 110 mmol/L (98-107); CREATININE 0.93 mg/dL (0.55-1.02); EST CRCL DRUG DOSING (CG) 47.93 mL/min; GLUCOSE RANDOM 137 mg/dL (70-99); LIPASE 68 U/L (73-393); MAGNESIUM 1.6 mg/dL (1.8-2.4); POTASSIUM,K 4.4 mmol/L (3.5-5.1); PROTEIN TOTAL,TP 5.4 g/dL (6.4-8.2); SODIUM,NA 144 mmol/L (136-145)
[2023-03-23 20:52] LABS: ESTIMATED GFR 70 mL/min (>=60); ETHANOL BLOOD MEDICAL < 3 mg/dL (0)
[2023-03-23 20:58] LABS: INR 1.5 (0.9-1.2); PROTHROMBIN TIME 15.6 SEC (9.0-12.0); PTT,PARTIAL THROMBOPLSTIN TIME 32.3 SEC (22.0-34.0)
[2023-03-23] MEDS ORDERED: Lactated Ringers 1,000 ML IV ONE (21:03)
[2023-03-23] MEDS ORDERED: Magnesium Sulfate/Water 2 GM in Premix Bag 1 BAG IV ONE (21:03)
[2023-03-23] MEDS ORDERED: Iopamidol 612 MG/ML 100 ML Bottle IVPUSH ONE (21:26)
[2023-03-23] MEDS ORDERED: Midodrine 5 MG Tab PO ONE (23:06)
[2023-03-23] MEDS ORDERED: Albumin 5% 250 ML IV SCH (23:15)
[2023-03-23] MEDS ORDERED: Octreotide 100 MCG in Sodium Chloride 0.9% 99 ML IV SCH (23:15)
[2023-03-23 23:38] LABS: APPEARANCE,URINE CLEAR (CLEAR); BILIRUBIN,URINE MODERATE (NEGATIVE); COLOR,URINE AMBER (YELLOW); GLUCOSE,URINE NEGATIVE (NEGATIVE); KETONES,URINE NEGATIVE (NEGATIVE); LEUKOCYTE ESTERASE,URINE TRACE (NEGATIVE); NITRITE,URINE NEGATIVE (NEGATIVE); OCCULT BLOOD,URINE NEGATIVE (NEGATIVE); PH,URINE 5.5 (5.0-9.0); PROTEIN,URINE NEGATIVE (NEGATIVE)
[2023-03-23 23:42] LABS: AMPHETAMINES,URINE NEGATIVE (NEGATIVE); BARBITURATES,URINE NEGATIVE (NEGATIVE); BENZODIAZEPINE,URINE NEGATIVE (NEGATIVE); MDMA (ECSTASY), URINE NEGATIVE (NEGATIVE); METHADONE,URINE NEGATIVE (NEGATIVE); METHAMPHETAMINES,URINE POSITIVE (NEGATIVE); OPIATES,URINE NEGATIVE (NEGATIVE); OXYCODONE,URINE NEGATIVE (NEGATIVE); PHENCYCLIDINE,URINE NEGATIVE (NEGATIVE); TCA,URINE NEGATIVE (NEGATIVE)
[2023-03-23 23:46] LABS: EPITHELIAL CELLS,URINE FEW /HPF (NOT SEEN); RBC,URINE 0-5 /HPF (0-5)
[2023-03-23 23:47] LABS: BACTERIA,URINE MANY /HPF (0-FEW/HPF)
[2023-03-24 01:09] VITALS: BP 77/45; PULSE 96
== END 2023-03-24 01:04 ==
LOC: DL.ED 19:53
DX: D50.0 Iron deficiency anemia secondary to blood loss (chronic) (principal); K70.31 Alcoholic cirrhosis of liver with ascites; N28.1 Cyst of kidney, acquired; I85.10 Secondary esophageal varices without bleeding; K63.89 Other specified diseases of intestine; I11.0 Hypertensive heart disease with heart failure; I50.9 Heart failure, unspecified; F17.210 Nicotine dependence, cigarettes, uncomplicated; Z88.6 Allergy status to analgesic agent; Z88.8 Allergy status to other drugs, medicaments and biological substances; Z79.899 Other long term (current) drug therapy
CPT/HCPCS: 36415; 36430; 51702; 74177; 80053; 80305-QW; 80307; 81001; 82272; 83605; 83690; 83735; 84145; 85025; 85610; 85730; 86140; 86850; 86900; 86901; 86920; 86922; 87040; 87086; 87088; 87186; 96365; 96366; 96367; 96368; 99284; 99285-25; A9270-GY; C9113; J2354-JA; J3475; J3490; J7120; P9016; P9045; Q9967

== ENCOUNTER 2023-05-18 17:09 | Inpatient (IN) | payer MEDICAID ==
[2023-05-18] MEDS ORDERED: Sodium Chloride 0.9% 10 ML Syringe FLUSH PRN (17:13)
[2023-05-18 17:24] LABS: BASOPHILS PERCENT AUTO 0.1 % (0.0-1.0); HEMATOCRIT 28.8 % (37.0-47.0); HEMOGLOBIN 8.7 g/dL (12.0-16.0); LYMPHOCYTES PERCENT AUTO 6.2 % (20.5-50.1); MEAN CORPUSCULAR HEMOGLOBIN 31.1 pg (27.0-34.0); MEAN CORPUSCULAR HGB CONC 30.2 g/dL (33.0-35.0); MEAN CORPUSCULAR VOLUME 102.9 fL (80-100); MONOCYTES PERCENT AUTO 9.4 % (2-8); NEUTROPHILS PERCENT AUTO 84.3 % (42.2-75.2); PLATELET COUNT,PLT 112 10^3/uL (150-450); WHITE BLOOD CELL COUNT,WBC 12.9 10^3/uL (5.0-10.0)
[2023-05-18] MEDS ORDERED: MVI, Adult with Vitamin K 10 ML, Folic Acid 1 MG, Thiamine 100 MG in Lactated Ringers 1... IV ONE ×4 (17:25)
[2023-05-18] MEDS ORDERED: Norepinephrine Bit/D5W Premix 250 ML IV SCH (17:30)
[2023-05-18] MEDS ORDERED: Lactulose Soln 10 GM/15 ML 30 ML UD Cup PO ONE (17:36)
[2023-05-18] MEDS: Sodium Chloride 0.9% 10 ML Syringe FLUSH PRN (17:37)
[2023-05-18 17:46] LABS: ALANINE AMINOTRANSFERASE,ALT 20 U/L (14-59); ALBUMIN 1.9 g/dL (3.4-5.0); ALKALINE PHOSPHATASE 115 U/L (46-116); ANION GAP 17.2 mEq/L (7-13); ASPARTATE AMNIOTRANSFERASE,AST 49 U/L (15-37); BILIRUBIN TOTAL 8.6 mg/dL (0.2-1.0); BLOOD UREA NITROGEN,BUN 47 mg/dL (7-18); BUN/CREATININE RATIO 35.3 (No establ ref range); CALCIUM 8.4 mg/dL (8.5-10.1); CARBON DIOXIDE,CO2 23 mmol/L (21-32); CHLORIDE,CL 112 mmol/L (98-107); CREATININE 1.33 mg/dL (0.55-1.02); GLUCOSE RANDOM 117 mg/dL (70-99); PROTEIN TOTAL,TP 5.7 g/dL (6.4-8.2); SODIUM,NA 147 mmol/L (136-145)
[2023-05-18 17:50] LABS: ESTIMATED GFR 45 mL/min (>=60); ETHANOL BLOOD MEDICAL < 3 mg/dL (0)
[2023-05-18 17:51] LABS: POTASSIUM,K 5.2 mmol/L (3.5-5.1)
[2023-05-18 17:52] LABS: LACTIC ACID 6.9 mmol/L (0.4-2.0)
[2023-05-18 17:54] VITALS: BP 79/68; PULSE 106
[2023-05-18] MEDS ORDERED: LORazepam 2 MG/ML SDV IVPUSH ONE (18:07)
[2023-05-18] MEDS ORDERED: LORazepam 2 MG/ML SDV IVPUSH PRN (19:28)
[2023-05-18] MEDS ORDERED: Atropine 1% Ophth Soln 5 ML Bottle SL PRN (19:30)
[2023-05-18] MEDS ORDERED: Scopolamine 1.5 MG Transdermal Patch TOP ONE (19:31)
[2023-05-18] MEDS: Morphine 2 MG/ML SYRINGE IVPUSH PRN (22:30)
[2023-05-19] MEDS: Morphine 2 MG/ML SYRINGE IVPUSH PRN ×2 (02:30→07:40)
[2023-05-19] MEDS: Sodium Chloride 0.9% 10 ML Syringe FLUSH PRN (07:50)
[2023-05-19] MEDS ORDERED: Sodium Chloride 0.9% 10 ML Syringe FLUSH PRN (09:22)
[2023-05-19] MEDS ORDERED: LORazepam 2 MG/ML SDV IVPUSH PRN (10:50)
[2023-05-19] MEDS ORDERED: Morphine 10 MG/ML Syringe IVPUSH PRN (11:02)
== END 2023-05-19 11:05 | disposition expired | DRG 951 ==
LOC: DL.ED 17:09 → DL.MS 18:35
PROVIDERS: ADMIT Internal Medicine; ATTEND Internal Medicine
PROC: 3E033XZ Introduction of Vasopressor into Peripheral Vein, Percutaneous Approach (ICD-10-PCS; principal; 2023-05-18)
DX: Z51.5 Encounter for palliative care (principal); A41.9 Sepsis, unspecified organism; G93.41 Metabolic encephalopathy; E86.0 Dehydration; E87.1 Hypo-osmolality and hyponatremia; N17.9 Acute kidney failure, unspecified; E87.20 Acidosis, unspecified; Z79.899 Other long term (current) drug therapy; E44.0 Moderate protein-calorie malnutrition; K76.6 Portal hypertension; Z66 Do not resuscitate; I95.9 Hypotension, unspecified; I11.0 Hypertensive heart disease with heart failure; I50.9 Heart failure, unspecified; K21.9 Gastro-esophageal reflux disease without esophagitis; G43.909 Migraine, unspecified, not intractable, without status migrainosus; F10.20 Alcohol dependence, uncomplicated; K70.31 Alcoholic cirrhosis of liver with ascites; K72.10 Chronic hepatic failure without coma; D63.8 Anemia in other chronic diseases classified elsewhere; D69.6 Thrombocytopenia, unspecified; E87.6 Hypokalemia; E87.8 Other disorders of electrolyte and fluid balance, not elsewhere classified; R73.9 Hyperglycemia, unspecified; G89.29 Other chronic pain; M54.9 Dorsalgia, unspecified; Z88.8 Allergy status to other drugs, medicaments and biological substances; Z90.49 Acquired absence of other specified parts of digestive tract; Z98.890 Other specified postprocedural states; Z98.51 Tubal ligation status; Z68.23 Body mass index [BMI] 23.0-23.9, adult; Z91.199 Patient's noncompliance with other medical treatment and regimen due to unspecified reason
CPT/HCPCS: 36415; 71045; 80053; 80307; 82140; 83605; 84484; 85025; 93005; J2060; J3411; J7120; 96365; 96375; 99223; 99238; 99285-25; A9270-GY; J2270; J3490